=== PATIENT | male | born 1960 ===

== ENCOUNTER → 2017-08-13 | Outpatient (CLI) | payer OTHER ==
[~2017-08-13] MED LIST: ALLO100; AMLO10 PO; AMOX500 PO; CLON.1; COLE625; HYDCHL25; LACT10SY PO; LISI20; LORA2 PO; LOSA25; Lysine1000 MG PO; METO25 PO; Omeprazole20 M1; RANI150; TAMS.4ER; TRIHYD5075 PO; [UNRECOGNIZED DRUG - REMARK]
[2017-08-13 16:42] LABS: Appearance, Urine Clear (Clear); Bilirubin, Urine Neg (Neg); Blood, Urine Neg (Neg); Color, Urine Yellow (P-Yellow); Glucose Qualitative, Urine Neg (Neg); Ketones, Urine Neg (Neg); Leukocyte Esterase, Urine Neg (Neg); Nitrite, Urine Neg (Neg); Protein, Urine 1+ (Neg); Urobilinogen, Urine 2+ (Normal)
== END ==
LOC: LAB 16:32
PROVIDERS: Nurse Practitioner Family
DX: M54.5 Low back pain (principal)
CPT/HCPCS: 81003

== ENCOUNTER 2017-10-24 12:39 | Emergency (ER) | payer OTHER ==
[~2017-10-24] VITALS: Ht 175.3 cm; Wt 104.3 kg
[~2017-10-24 12:39] MED LIST changes: -AMLO10 PO; -LACT10SY PO; -Lysine1000 MG PO
[2017-10-24] MEDS ORDERED: LACT10SY PO (13:09)
[2017-10-24] MEDS ORDERED: AMLO10 PO (13:09)
[2017-10-24] MEDS ORDERED: Lysine1000 MG PO (13:10)
[2017-10-24 14:00] LABS: BASOPHILS ABSOLUTE AUTO 0.07 K/mm3 (0.00-0.23); BASOPHILS PERCENT AUTO 1 % (0-2); EOSINOPHILS ABSOLUTE AUTO 0.11 K/mm3 (0.00-0.68); EOSINOPHILS PERCENT AUTO 2 % (0-6); Hematocrit 47.6 % (37.0-53.0); Hemoglobin 15.9 g/dL (13.5-17.5); IMMATURE GRAN ABSOLUTE AUTO 0.01 K/mm3 (0.00-0.10); IMMATURE GRAN PERCENT AUTO 0 % (0-1); LYMPHOCYTES ABSOLUTE AUTO 2.34 K/mm3 (0.84-5.20); LYMPHOCYTES PERCENT AUTO 37 % (21-46); MONOCYTES ABSOLUTE AUTO 0.54 K/mm3 (0.16-1.47); MONOCYTES PERCENT AUTO 8 % (4-13); Mean Corpuscular HGB 29.7 pg (26.0-34.0); Mean Corpuscular HGB Conc 33.4 g/dL (31.5-36.5); Mean Corpuscular Volume 89 fL (80-100); Mean Platelet Volume 10.4 fL (9.1-12.4); NEUTROPHILS ABSOLUTE AUTO 3.34 K/mm3 (1.96-9.15); NEUTROPHILS PERCENT AUTO 52 % (41-73); Platelet Count 161 K/mm3 (150-400); RDW Coefficient Variation 16.4 % (11.7-14.2); RDW Standard Deviation 53.5 fL (35.1-46.3); Red Blood Cell Count 5.36 M/mm3 (4.30-5.90); White Blood Cell Count 6.41 K/mm3 (4.00-11.30)
[2017-10-24 14:09] LABS: Alanine Aminotransfer (ALT/SGP 27 U/L (12-78); Albumin, Blood 3.8 g/dL (3.4-5.0); Albumin/Globulin Ratio 0.8 (0.8-1.8); Alk Phos 67 U/L (50-136); Anion Gap 8 mmol/L (6-16); Aspartate Aminotrans (AST/SGOT 31 U/L (12-37); Bilirubin, Total 1.9 mg/dL (0.1-1.0); Blood Urea Nitrogen 15 mg/dL (8-24); Bun/Creatinine Ratio 17.4 (12.0-20.0); CO2, Blood 25 mmol/L (21-32); Chloride, Blood 104 mmol/L (98-108); Creatinine, Blood 0.86 mg/dL (0.60-1.20); Globulin, Blood 4.8 g/dL (2.2-4.0); Glomerular Filtration Rate >60 (60-); Glucose, Blood 128 mg/dL (70-99); Potassium, Blood 3.9 mmol/L (3.5-5.5); Sodium, Blood 137 mmol/L (136-145); Total Protein, Blood 8.6 g/dL (6.4-8.2)
== END 2017-10-24 15:22 | disposition home or self-care (01) ==
LOC: ER 12:39
PROVIDERS: Emergency Medicine
DX: R47.81 Slurred speech (principal); R29.810 Facial weakness; R51 Headache; F10.10 Alcohol abuse, uncomplicated; Z88.8 Allergy status to other drugs, medicaments and biological substances; Z79.899 Other long term (current) drug therapy; Z87.891 Personal history of nicotine dependence
CPT/HCPCS: 36415; 70450; 80053; 85025; 93005; 93010; 99284

== ENCOUNTER → 2018-02-23 | Outpatient (CLI) | payer OTHER ==
[~2018-02-23] MED LIST changes: +AMLO10 PO; +LACT10SY PO; +Lysine1000 MG PO
[2018-02-23 11:35] LABS: BASOPHILS ABSOLUTE AUTO 0.06 K/mm3 (0.00-0.23); BASOPHILS PERCENT AUTO 1 % (0-2); EOSINOPHILS ABSOLUTE AUTO 0.21 K/mm3 (0.00-0.68); EOSINOPHILS PERCENT AUTO 3 % (0-6); Hematocrit 42.8 % (37.0-53.0); Hemoglobin 14.5 g/dL (13.5-17.5); IMMATURE GRAN ABSOLUTE AUTO 0.01 K/mm3 (0.00-0.10); IMMATURE GRAN PERCENT AUTO 0 % (0-1); LYMPHOCYTES ABSOLUTE AUTO 2.74 K/mm3 (0.84-5.20); LYMPHOCYTES PERCENT AUTO 42 % (21-46); MONOCYTES ABSOLUTE AUTO 0.54 K/mm3 (0.16-1.47); MONOCYTES PERCENT AUTO 8 % (4-13); Mean Corpuscular HGB Conc 33.9 g/dL (31.5-36.5); Mean Corpuscular Volume 86 fL (80-100); Mean Platelet Volume 10.9 fL (9.1-12.4); NEUTROPHILS ABSOLUTE AUTO 2.93 K/mm3 (1.96-9.15); NEUTROPHILS PERCENT AUTO 45 % (41-73); Platelet Count 168 K/mm3 (150-400); RDW Coefficient Variation 14.8 % (11.7-14.2); RDW Standard Deviation 46.3 fL (35.1-46.3); White Blood Cell Count 6.49 K/mm3 (4.00-11.30)
[2018-02-23 11:47] LABS: Alanine Aminotransfer (ALT/SGP 37 U/L (12-78); Albumin, Blood 3.8 g/dL (3.4-5.0); Albumin/Globulin Ratio 0.9 (0.8-1.8); Alk Phos 69 U/L (40-126); Anion Gap 9 mmol/L (6-16); Aspartate Aminotrans (AST/SGOT 35 U/L (12-37); Bilirubin, Total 1.1 mg/dL (0.1-1.0); Blood Urea Nitrogen 14 mg/dL (8-24); Bun/Creatinine Ratio 13.7 (12.0-20.0); CO2, Blood 26 mmol/L (21-32); Chloride, Blood 100 mmol/L (98-108); Creatinine, Blood 1.02 mg/dL (0.60-1.20); Globulin, Blood 4.4 g/dL (2.2-4.0); Glomerular Filtration Rate >60 (60-); Glucose, Blood 107 mg/dL (70-99); Potassium, Blood 3.6 mmol/L (3.5-5.5); Sodium, Blood 135 mmol/L (136-145); Total Protein, Blood 8.2 g/dL (6.4-8.2)
[2018-02-23 11:48] LABS: Troponin I <0.017 ng/mL (0.000-0.040)
== END | disposition home or self-care (01) ==
LOC: LAB EV 11:29 → LAB SHORT 11:29
PROVIDERS: Physician Assistant
DX: R10.13 Epigastric pain (principal); R07.89 Other chest pain
CPT/HCPCS: 80053; 83690; 84484; 85025

== ENCOUNTER 2018-04-09 11:38 | Day surgery (SDC) | payer OTHER ==
[~2018-04-09] VITALS: Ht 172.7 cm; Wt 105.3 kg
== END 2018-04-09 13:48 | disposition home or self-care (01) ==
LOC: ORSCSDS 11:38
PROVIDERS: Internal Medicine Gastroenterology
PROC: 0DB68ZX Excision of Stomach, Via Natural or Artificial Opening Endoscopic, Diagnostic (ICD-10-PCS; principal; 2018-04-09 13:00)
DX: K70.30 Alcoholic cirrhosis of liver without ascites (principal); E66.9 Obesity, unspecified; Z68.35 Body mass index [BMI] 35.0-35.9, adult; Z87.891 Personal history of nicotine dependence; I10 Essential (primary) hypertension; R06.00 Dyspnea, unspecified; E78.5 Hyperlipidemia, unspecified; E11.9 Type 2 diabetes mellitus without complications; Z79.899 Other long term (current) drug therapy
CPT/HCPCS: 82947; 87081; J7120

== ENCOUNTER → 2018-11-19 | Outpatient (CLI) | payer OTHER ==
[~2018-11-19] MED LIST changes: -ALLO100; +ALLO100 PO; +Acyclovir400 MG PO; +GABA300 PO; +HYDCHL25 PO; +METF500 PO; +NAPR220 PO; -Omeprazole20 M1; +Omeprazole20 M1 PO; -TAMS.4ER; +TAMS.4ER PO
[2018-11-19 16:05] LABS: Appearance, Urine Clear (Clear); Bilirubin, Urine Neg (Neg); Blood, Urine 1+ (Neg); Color, Urine Yellow (P-Yellow); Glucose Qualitative, Urine Neg (Neg); Ketones, Urine Neg (Neg); Leukocyte Esterase, Urine Neg (Neg); Nitrite, Urine Neg (Neg); Protein, Urine 1+ (Neg); Urobilinogen, Urine 2+ (Normal)
[2018-11-19 16:42] LABS: Bacteria Not Seen /hpf; Red Blood Cells, Urine 0-2 /hpf (0-2); Squamous Epithelial Cells Not Seen /hpf (Few); White Blood Cells, Urine 0-2 /hpf (0-5)
== END | disposition home or self-care (01) ==
LOC: LAB 14:54 → LAB SHORT 14:54
PROVIDERS: Family Medicine
DX: R10.30 Lower abdominal pain, unspecified (principal)
CPT/HCPCS: 81001

== ENCOUNTER → 2019-05-08 | Outpatient (CLI) | payer OTHER ==
[2019-05-08 11:54] LABS: Bilirubin, Urine Neg (Neg); Blood, Urine 1+ (Neg); Glucose Qualitative, Urine Neg (Neg); Ketones, Urine 1+ (Neg); Leukocyte Esterase, Urine 1+ (Neg); Nitrite, Urine Neg (Neg); Protein, Urine 2+ (Neg); Urobilinogen, Urine 2+ (Normal); pH, Urine 6.5 (5.0-8.0)
[2019-05-08 12:24] LABS: Appearance, Urine Clear (Clear); Color, Urine Yellow (P-Yellow)
[2019-05-08 12:26] LABS: Bacteria Few /hpf; Red Blood Cells, Urine 0-2 /hpf (0-2); Squamous Epithelial Cells Not Seen /hpf (Few); White Blood Cells, Urine 0-2 /hpf (0-5)
== END | disposition home or self-care (01) ==
LOC: LAB 11:01 → LAB SHORT 11:01
PROVIDERS: Family Medicine
DX: R10.9 Unspecified abdominal pain (principal)
CPT/HCPCS: 81001; 87086

== ENCOUNTER → 2019-12-16 | Outpatient (CLI) | payer OTHER ==
[2019-12-16 10:09] LABS: Appearance, Urine Clear (Clear); Bilirubin, Urine 1+ (Neg); Blood, Urine Neg (Neg); Color, Urine Yellow (P-Yellow); Glucose Qualitative, Urine Neg (Normal); Ketones, Urine 1+ (Neg); Leukocyte Esterase, Urine Neg (Neg); Nitrite, Urine Neg (Neg); Protein, Urine Neg (Neg); Urobilinogen, Urine 2+ (Normal); pH, Urine 6.5 (5.0-8.0)
== END | disposition home or self-care (01) ==
LOC: LAB SHORT 09:20 → LAB EV 09:20
PROVIDERS: Family Medicine
DX: R10.2 Pelvic and perineal pain (principal)
CPT/HCPCS: 81003

== ENCOUNTER → 2019-12-17 | Outpatient (CLI) | payer OTHER ==
[2019-12-17 20:31] LABS: Campylobacter Sp Not Detected (NOT DETECT)
[2019-12-17 20:33] LABS: Adenovirus F 40/41 Not Detected (NOT DETECT); Astrovirus Not Detected (NOT DETECT); Cryptosporidium Not Detected (NOT DETECT); Cyclospora Cayetanensis Not Detected (NOT DETECT); E. Coli O157 Not Detected (NOT DETECT); Entamoeba Histolytica Not Detected (NOT DETECT); Enteroaggregative E. coli-EAEC Not Detected (NOT DETECT); Enteropathogenic E. coli-EPEC Not Detected (NOT DETECT); Enterotoxigenic E. coli-ETEC Not Detected (NOT DETECT); Giardia Lamblia Not Detected (NOT DETECT); Norovirus GI/GII Not Detected (NOT DETECT); Plesiomonas Shigelloides Not Detected (NOT DETECT); Rotavirus A Not Detected (NOT DETECT); Salmonella Sp Not Detected (NOT DETECT); Sapovirus Not Detected (NOT DETECT); Shiga Toxin-prod E. coli-STEC Not Detected (NOT DETECT); Shigella/Enteroin E. coli-EIEC Not Detected (NOT DETECT); Vibrio Cholerae Not Detected (NOT DETECT); Vibrio Sp Not Detected (NOT DETECT); Yersinia Enterocolitica Not Detected (NOT DETECT)
== END | disposition home or self-care (01) ==
LOC: LAB EV 10:45
PROVIDERS: Family Medicine
DX: R19.7 Diarrhea, unspecified (principal); R10.2 Pelvic and perineal pain
CPT/HCPCS: 0097U

== ENCOUNTER → 2019-12-25 | Outpatient (CLI) | payer OTHER ==
[2019-12-25 15:20] LABS: BASOPHILS ABSOLUTE AUTO 0.04 K/mm3 (0.00-0.23); BASOPHILS PERCENT AUTO 1 % (0-2); EOSINOPHILS ABSOLUTE AUTO 0.16 K/mm3 (0.00-0.68); EOSINOPHILS PERCENT AUTO 3 % (0-6); Hematocrit 44.9 % (37.0-53.0); Hemoglobin 15.7 g/dL (13.5-17.5); IMMATURE GRAN ABSOLUTE AUTO 0.03 K/mm3 (0.00-0.10); IMMATURE GRAN PERCENT AUTO 1 % (0-1); LYMPHOCYTES PERCENT AUTO 40 % (21-46); MONOCYTES ABSOLUTE AUTO 0.68 K/mm3 (0.16-1.47); MONOCYTES PERCENT AUTO 11 % (4-13); Mean Corpuscular HGB 29.8 pg (26.0-34.0); Mean Corpuscular Volume 85 fL (80-100); Mean Platelet Volume 10.4 fL (9.1-12.4); NEUTROPHILS ABSOLUTE AUTO 2.69 K/mm3 (1.96-9.15); NEUTROPHILS PERCENT AUTO 45 % (41-73); Platelet Count 161 K/mm3 (150-400); RDW Coefficient Variation 14.6 % (11.7-14.2); RDW Standard Deviation 45.8 fL (35.1-46.3); Red Blood Cell Count 5.26 M/mm3 (4.30-5.90)
[2019-12-25 15:29] LABS: Alanine Aminotransfer (ALT/SGP 47 U/L (12-78); Albumin/Globulin Ratio 0.9 (0.8-1.8); Alk Phos 59 U/L (40-126); Anion Gap 13 mmol/L (6-16); Aspartate Aminotrans (AST/SGOT 64 U/L (12-37); Bilirubin, Total 1.3 mg/dL (0.1-1.0); Blood Urea Nitrogen 11 mg/dL (8-24); Bun/Creatinine Ratio 11.6 (12.0-20.0); CO2, Blood 26 mmol/L (21-32); Calcium, Blood 8.9 mg/dL (8.5-10.1); Chloride, Blood 95 mmol/L (98-108); Creatinine, Blood 0.95 mg/dL (0.60-1.20); Globulin, Blood 4.6 g/dL (2.2-4.0); Glomerular Filtration Rate >60 (60-); Glucose, Blood 111 mg/dL (70-99); Potassium, Blood 3.8 mmol/L (3.5-5.5); Sodium, Blood 134 mmol/L (136-145); Total Protein, Blood 8.6 g/dL (6.4-8.2)
== END ==
LOC: LAB SHORT 15:11 → LAB EV 15:11
PROVIDERS: Physician Assistant Surgical
DX: R10.9 Unspecified abdominal pain (principal)
CPT/HCPCS: 80053; 83690; 85025

== ENCOUNTER 2020-10-19 11:47 | Day surgery (SDC) | payer OTHER ==
[~2020-10-19] VITALS: Ht 175.3 cm; Wt 101.6 kg
== END 2020-10-19 14:18 | disposition home or self-care (01) ==
LOC: ORSCSDS 11:47
PROVIDERS: Internal Medicine Gastroenterology
PROC: 0DBH8ZX Excision of Cecum, Via Natural or Artificial Opening Endoscopic, Diagnostic (ICD-10-PCS; principal; 2020-10-19 13:00)
PROC: 0DBK8ZX Excision of Ascending Colon, Via Natural or Artificial Opening Endoscopic, Diagnostic (ICD-10-PCS; principal; 2020-10-19 13:00)
PROC: 0DBM8ZX Excision of Descending Colon, Via Natural or Artificial Opening Endoscopic, Diagnostic (ICD-10-PCS; principal; 2020-10-19 13:00)
PROC: 0DJ08ZZ Inspection of Upper Intestinal Tract, Via Natural or Artificial Opening Endoscopic (ICD-10-PCS; principal; 2020-10-19 13:00)
DX: I85.00 Esophageal varices without bleeding (principal); K74.60 Unspecified cirrhosis of liver; Z12.11 Encounter for screening for malignant neoplasm of colon; Z86.010 Personal history of colon polyps; D12.0 Benign neoplasm of cecum; D12.2 Benign neoplasm of ascending colon; D12.4 Benign neoplasm of descending colon; K57.30 Diverticulosis of large intestine without perforation or abscess without bleeding; I10 Essential (primary) hypertension; E11.9 Type 2 diabetes mellitus without complications; G47.33 Obstructive sleep apnea (adult) (pediatric); Z87.891 Personal history of nicotine dependence; Z79.899 Other long term (current) drug therapy
CPT/HCPCS: 82947; 88305; J2704; J7120

== ENCOUNTER → 2021-03-03 | Outpatient (CLI) | payer OTHER ==
[2021-03-03 16:55] LABS: Source, Urine Voided
[2021-03-03 16:58] LABS: Color, Urine Yellow (P-Yellow)
[2021-03-03 16:59] LABS: Appearance, Urine Hazy (Clear); Bilirubin, Urine 1+ (Neg); Glucose Qualitative, Urine Neg (Normal); Ketones, Urine Neg (Neg); Leukocyte Esterase, Urine Neg (Neg); Nitrite, Urine Neg (Neg); Protein, Urine Trace (Neg); Urobilinogen, Urine 3+ (Normal)
[2021-03-03 17:00] LABS: Blood, Urine 2+ (Neg)
[2021-03-03 17:01] LABS: Bacteria Not Seen /hpf; Squamous Epithelial Cells Rare /hpf (Few); White Blood Cells, Urine 0-2 /hpf (0-5)
== END | disposition home or self-care (01) ==
LOC: LAB 16:53 → LAB SHORT 16:53
PROVIDERS: Family Medicine
DX: R31.9 Hematuria, unspecified (principal)
CPT/HCPCS: 81001

== ENCOUNTER → 2022-07-03 | Outpatient (CLI) | payer OTHER ==
[2022-07-03 12:34] LABS: BASOPHILS ABSOLUTE AUTO 0.08 K/mm3 (0.00-0.23); BASOPHILS PERCENT AUTO 2 % (0-2); EOSINOPHILS ABSOLUTE AUTO 0.18 K/mm3 (0.00-0.68); EOSINOPHILS PERCENT AUTO 3 % (0-6); Hemoglobin 15.9 g/dL (13.5-17.5); IMMATURE GRAN ABSOLUTE AUTO 0.01 K/mm3 (0.00-0.10); IMMATURE GRAN PERCENT AUTO 0 % (0-1); LYMPHOCYTES ABSOLUTE AUTO 1.89 K/mm3 (0.84-5.20); LYMPHOCYTES PERCENT AUTO 35 % (21-46); MONOCYTES ABSOLUTE AUTO 0.61 K/mm3 (0.16-1.47); MONOCYTES PERCENT AUTO 11 % (4-13); Mean Corpuscular HGB 29.5 pg (26.0-34.0); Mean Corpuscular HGB Conc 34.6 g/dL (31.5-36.5); Mean Corpuscular Volume 85 fL (80-100); NEUTROPHILS ABSOLUTE AUTO 2.64 K/mm3 (1.96-9.15); NEUTROPHILS PERCENT AUTO 49 % (41-73); RDW Coefficient Variation 14.9 % (11.7-14.2); RDW Standard Deviation 45.9 fL (35.1-46.3); Red Blood Cell Count 5.39 M/mm3 (4.30-5.90); White Blood Cell Count 5.41 K/mm3 (4.00-11.30)
[2022-07-03 12:45] LABS: Albumin, Blood 3.5 g/dL (3.4-5.0); Albumin/Globulin Ratio 0.6 (0.8-1.8); Bilirubin, Total 2.3 mg/dL (0.1-1.0); Bun/Creatinine Ratio 8.3 (12.0-20.0); Calcium, Blood 9.1 mg/dL (8.5-10.1); Creatinine, Blood 0.96 mg/dL (0.60-1.20); Globulin, Blood 5.6 g/dL (2.2-4.0); Potassium, Blood 3.3 mmol/L (3.5-5.5); Total Protein, Blood 9.1 g/dL (6.4-8.2)
[2022-07-03 12:47] LABS: Mean Platelet Volume 10.3 fL (9.1-12.4)
[2022-07-03 13:09] LABS: Platelet Count 140 K/mm3 (150-400)
== END ==
LOC: LAB 12:30 → LAB SHORT 12:30
PROVIDERS: Emergency Medicine
DX: R10.9 Unspecified abdominal pain (principal)
CPT/HCPCS: 80053; 83690; 85025

== ENCOUNTER → 2022-07-25 | Outpatient (CLI) | payer OTHER ==
[2022-07-25 13:42] LABS: Campylobacter Sp Not Detected (NOT DETECT); Cryptosporidium Not Detected (NOT DETECT); Cyclospora Cayetanensis Not Detected (NOT DETECT); E. Coli O157 Not Detected (NOT DETECT); Enteroaggregative E. coli-EAEC Not Detected (NOT DETECT); Enteropathogenic E. coli-EPEC Detected (NOT DETECT); Enterotoxigenic E. coli-ETEC Not Detected (NOT DETECT); Plesiomonas Shigelloides Not Detected (NOT DETECT); Salmonella Sp Not Detected (NOT DETECT); Shiga Toxin-prod E. coli-STEC Not Detected (NOT DETECT); Shigella/Enteroin E. coli-EIEC Not Detected (NOT DETECT); Vibrio Cholerae Not Detected (NOT DETECT); Vibrio Sp Not Detected (NOT DETECT); Yersinia Enterocolitica Not Detected (NOT DETECT)
[2022-07-25 13:43] LABS: Adenovirus F 40/41 Not Detected (NOT DETECT); Astrovirus Not Detected (NOT DETECT); Entamoeba Histolytica Not Detected (NOT DETECT); Giardia Lamblia Not Detected (NOT DETECT); Norovirus GI/GII Not Detected (NOT DETECT); Rotavirus A Not Detected (NOT DETECT); Sapovirus Not Detected (NOT DETECT)
== END | disposition home or self-care (01) ==
LOC: LAB SHORT 10:20 → LAB FUT 07-24 11:20 → EDSTATUS 07-24 11:20
PROVIDERS: Internal Medicine Gastroenterology
DX: R19.4 Change in bowel habit (principal)
CPT/HCPCS: 87324; 87507

== ENCOUNTER → 2022-11-20 | Outpatient (CLI) | payer OTHER ==
[2022-11-20 17:58] LABS: BASOPHILS ABSOLUTE AUTO 0.04 K/mm3 (0.00-0.23); BASOPHILS PERCENT AUTO 1 % (0-2); EOSINOPHILS ABSOLUTE AUTO 0.02 K/mm3 (0.00-0.68); EOSINOPHILS PERCENT AUTO 0 % (0-6); Hematocrit 42.4 % (37.0-53.0); Hemoglobin 14.9 g/dL (13.5-17.5); IMMATURE GRAN ABSOLUTE AUTO 0.01 K/mm3 (0.00-0.10); IMMATURE GRAN PERCENT AUTO 0 % (0-1); LYMPHOCYTES ABSOLUTE AUTO 1.93 K/mm3 (0.84-5.20); LYMPHOCYTES PERCENT AUTO 36 % (21-46); MONOCYTES ABSOLUTE AUTO 0.38 K/mm3 (0.16-1.47); MONOCYTES PERCENT AUTO 7 % (4-13); Mean Corpuscular HGB 30.3 pg (26.0-34.0); Mean Corpuscular HGB Conc 35.1 g/dL (31.5-36.5); Mean Corpuscular Volume 86 fL (80-100); NEUTROPHILS ABSOLUTE AUTO 2.98 K/mm3 (1.96-9.15); NEUTROPHILS PERCENT AUTO 56 % (41-73); RDW Coefficient Variation 14.8 % (11.7-14.2); RDW Standard Deviation 46.7 fL (35.1-46.3); Red Blood Cell Count 4.91 M/mm3 (4.30-5.90); White Blood Cell Count 5.36 K/mm3 (4.00-11.30)
[2022-11-20 18:00] LABS: Mean Platelet Volume 11.3 fL (9.1-12.4); Platelet Count 122 K/mm3 (150-400)
[2022-11-20 18:09] LABS: Albumin, Blood 3.3 g/dL (3.4-5.0); Albumin/Globulin Ratio 0.6 (0.8-1.8); Bilirubin, Total 3.1 mg/dL (0.1-1.0); Bun/Creatinine Ratio 8.4 (12.0-20.0); Calcium, Blood 8.9 mg/dL (8.5-10.1); Creatinine, Blood 1.07 mg/dL (0.60-1.20); Globulin, Blood 5.1 g/dL (2.2-4.0); Potassium, Blood 3.5 mmol/L (3.5-5.5); Total Protein, Blood 8.4 g/dL (6.4-8.2)
== END | disposition home or self-care (01) ==
LOC: LAB SHORT 17:52 → LAB 17:52
PROVIDERS: Family Medicine
DX: R07.9 Chest pain, unspecified (principal)
CPT/HCPCS: 80053; 84484; 85025

== ENCOUNTER 2023-04-05 17:24 | Emergency (ER) | payer OTHER ==
[~2023-04-05] VITALS: Ht 170.2 cm; Wt 90.7 kg
[2023-04-05 18:23] LABS: BASOPHILS ABSOLUTE AUTO 0.08 K/mm3 (0.00-0.23); BASOPHILS PERCENT AUTO 1 % (0-2); EOSINOPHILS ABSOLUTE AUTO 0.25 K/mm3 (0.00-0.68); EOSINOPHILS PERCENT AUTO 4 % (0-6); Hemoglobin 12.5 g/dL (13.5-17.5); IMMATURE GRAN ABSOLUTE AUTO 0.01 K/mm3 (0.00-0.10); IMMATURE GRAN PERCENT AUTO 0 % (0-1); LYMPHOCYTES ABSOLUTE AUTO 1.95 K/mm3 (0.84-5.20); LYMPHOCYTES PERCENT AUTO 32 % (21-46); MONOCYTES ABSOLUTE AUTO 0.98 K/mm3 (0.16-1.47); MONOCYTES PERCENT AUTO 16 % (4-13); Mean Corpuscular HGB 29.7 pg (26.0-34.0); Mean Corpuscular HGB Conc 33.8 g/dL (31.5-36.5); Mean Corpuscular Volume 88 fL (80-100); Mean Platelet Volume 11.3 fL (9.1-12.4); NEUTROPHILS ABSOLUTE AUTO 2.93 K/mm3 (1.96-9.15); NEUTROPHILS PERCENT AUTO 47 % (41-73); Platelet Count 130 K/mm3 (150-400); RDW Standard Deviation 51.9 fL (35.1-46.3); Red Blood Cell Count 4.21 M/mm3 (4.30-5.90)
[2023-04-05 18:56] LABS: Albumin, Blood 2.9 g/dL (3.4-5.0); Albumin/Globulin Ratio 0.6 (0.8-1.8); Bilirubin, Total 4.1 mg/dL (0.1-1.0); Bun/Creatinine Ratio 17.6 (12.0-20.0); Calcium, Blood 9.1 mg/dL (8.5-10.1); Creatinine, Blood 0.97 mg/dL (0.60-1.20); Globulin, Blood 4.9 g/dL (2.2-4.0); Potassium, Blood 3.2 mmol/L (3.5-5.5); Total Protein, Blood 7.8 g/dL (6.4-8.2)
[2023-04-05 20:30] VITALS: BP 146/89
== END 2023-04-05 20:45 | disposition home or self-care (01) ==
LOC: ER 17:24
PROVIDERS: Student in an Organized Health Care Education/Training Program
DX: K76.82 Hepatic encephalopathy (principal); E87.6 Hypokalemia; Z88.8 Allergy status to other drugs, medicaments and biological substances; Z79.899 Other long term (current) drug therapy; Z79.84 Long term (current) use of oral hypoglycemic drugs; E11.9 Type 2 diabetes mellitus without complications; F10.20 Alcohol dependence, uncomplicated
CPT/HCPCS: 74177; 80053; 82140; 83690; 85025; 93005; 93010; 99285-25; A9270; Q9967

== ENCOUNTER 2023-04-15 13:00 | Emergency (ER) | payer OTHER ==
[~2023-04-15] VITALS: Ht 170.2 cm; Wt 93.0 kg
[2023-04-15 13:52] LABS: BASOPHILS ABSOLUTE AUTO 0.04 K/mm3 (0.00-0.23); BASOPHILS PERCENT AUTO 1 % (0-2); EOSINOPHILS ABSOLUTE AUTO 0.26 K/mm3 (0.00-0.68); EOSINOPHILS PERCENT AUTO 4 % (0-6); Hematocrit 36.3 % (37.0-53.0); Hemoglobin 12.5 g/dL (13.5-17.5); IMMATURE GRAN ABSOLUTE AUTO 0.01 K/mm3 (0.00-0.10); IMMATURE GRAN PERCENT AUTO 0 % (0-1); LYMPHOCYTES ABSOLUTE AUTO 1.92 K/mm3 (0.84-5.20); LYMPHOCYTES PERCENT AUTO 32 % (21-46); MONOCYTES ABSOLUTE AUTO 0.75 K/mm3 (0.16-1.47); MONOCYTES PERCENT AUTO 13 % (4-13); Mean Corpuscular HGB 29.5 pg (26.0-34.0); Mean Corpuscular HGB Conc 34.4 g/dL (31.5-36.5); Mean Corpuscular Volume 86 fL (80-100); Mean Platelet Volume 11.2 fL (9.1-12.4); NEUTROPHILS ABSOLUTE AUTO 2.99 K/mm3 (1.96-9.15); NEUTROPHILS PERCENT AUTO 50 % (41-73); Platelet Count 185 K/mm3 (150-400); RDW Standard Deviation 49.8 fL (35.1-46.3); Red Blood Cell Count 4.24 M/mm3 (4.30-5.90); White Blood Cell Count 5.97 K/mm3 (4.00-11.30)
[2023-04-15 14:07] LABS: International Normalized Ratio 1.52; Prothrombin Time Results 15.6 Sec (9.7-11.5)
[2023-04-15 14:35] LABS: Albumin, Blood 2.6 g/dL (3.4-5.0); Albumin/Globulin Ratio 0.5 (0.8-1.8); Bilirubin, Total 3.9 mg/dL (0.1-1.0); Bun/Creatinine Ratio 13.9 (12.0-20.0); Calcium, Blood 8.8 mg/dL (8.5-10.1); Creatinine, Blood 1.08 mg/dL (0.60-1.20); Globulin, Blood 5.1 g/dL (2.2-4.0); Potassium, Blood 3.3 mmol/L (3.5-5.5); Total Protein, Blood 7.7 g/dL (6.4-8.2)
[2023-04-15] MEDS ORDERED: CONSTULOSE10 GM/155 PO (15:08)
[2023-04-15] MEDS ORDERED: ATOR40TA PO (15:09)
[2023-04-15] MEDS ORDERED: ONDA4ODT MM (15:09)
[2023-04-15 15:44] VITALS: BP 121/71
== END 2023-04-15 15:49 | disposition home or self-care (01) ==
LOC: ER 13:00
PROVIDERS: Physician Assistant
DX: K70.31 Alcoholic cirrhosis of liver with ascites (principal); F10.11 Alcohol abuse, in remission; E11.9 Type 2 diabetes mellitus without complications; F17.210 Nicotine dependence, cigarettes, uncomplicated; Z88.8 Allergy status to other drugs, medicaments and biological substances; Z79.899 Other long term (current) drug therapy
CPT/HCPCS: 80053; 83690; 85025; 85610; 99284

== ENCOUNTER 2023-05-11 10:29 | Emergency (ER) | payer OTHER ==
[~2023-05-11] VITALS: Ht 170.2 cm; Wt 87.5 kg
[~2023-05-11 10:29] MED LIST changes: +ATOR40TA PO; +CONSTULOSE10 GM/155 PO; +ONDA4ODT MM
[2023-05-11 11:08] LABS: BASOPHILS ABSOLUTE AUTO 0.06 K/mm3 (0.00-0.23); BASOPHILS PERCENT AUTO 1 % (0-2); EOSINOPHILS ABSOLUTE AUTO 0.19 K/mm3 (0.00-0.68); EOSINOPHILS PERCENT AUTO 4 % (0-6); Hematocrit 36.2 % (37.0-53.0); Hemoglobin 12.3 g/dL (13.5-17.5); IMMATURE GRAN ABSOLUTE AUTO 0.01 K/mm3 (0.00-0.10); IMMATURE GRAN PERCENT AUTO 0 % (0-1); LYMPHOCYTES ABSOLUTE AUTO 1.77 K/mm3 (0.84-5.20); LYMPHOCYTES PERCENT AUTO 39 % (21-46); MONOCYTES ABSOLUTE AUTO 0.35 K/mm3 (0.16-1.47); MONOCYTES PERCENT AUTO 8 % (4-13); Mean Corpuscular HGB 29.7 pg (26.0-34.0); Mean Corpuscular Volume 87 fL (80-100); Mean Platelet Volume 12.2 fL (9.1-12.4); NEUTROPHILS ABSOLUTE AUTO 2.22 K/mm3 (1.96-9.15); NEUTROPHILS PERCENT AUTO 48 % (41-73); Platelet Count 170 K/mm3 (150-400); RDW Coefficient Variation 18.1 % (11.7-14.2); RDW Standard Deviation 56.8 fL (35.1-46.3); Red Blood Cell Count 4.14 M/mm3 (4.30-5.90)
[2023-05-11 11:48] LABS: International Normalized Ratio 1.48; Prothrombin Time Results 15.2 Sec (9.7-11.5)
[2023-05-11 11:54] LABS: Albumin, Blood 2.5 g/dL (3.4-5.0); Albumin/Globulin Ratio 0.4 (0.8-1.8); Bilirubin, Total 3.9 mg/dL (0.1-1.0); Bun/Creatinine Ratio 17.3 (12.0-20.0); Calcium, Blood 8.8 mg/dL (8.5-10.1); Creatinine, Blood 1.1 mg/dL (0.60-1.20); Globulin, Blood 5.8 g/dL (2.2-4.0); Potassium, Blood 3.7 mmol/L (3.5-5.5); Total Protein, Blood 8.3 g/dL (6.4-8.2)
[2023-05-11 12:00] VITALS: BP 103/70
== END 2023-05-11 12:32 | disposition home or self-care (01) ==
LOC: ER 10:29
PROVIDERS: Emergency Medicine
DX: R55 Syncope and collapse (principal); S00.01XA Abrasion of scalp, initial encounter; E72.20 Disorder of urea cycle metabolism, unspecified; W18.09XA Striking against other object with subsequent fall, initial encounter; Y92.002 Bathroom of unspecified non-institutional (private) residence as the place of occurrence of the external cause; Z88.8 Allergy status to other drugs, medicaments and biological substances; Z79.899 Other long term (current) drug therapy; E11.9 Type 2 diabetes mellitus without complications
CPT/HCPCS: 70450; 80053; 82140; 85025; 85610; 85730; 99284-25; A9270

== ENCOUNTER 2023-05-14 12:02 | Inpatient (IN) | payer OTHER ==
[~2023-05-14] VITALS: Ht 170.2 cm; Wt 85.6 kg
[2023-05-14 12:49] LABS: BASOPHILS ABSOLUTE AUTO 0.04 K/mm3 (0.00-0.23); BASOPHILS PERCENT AUTO 1 % (0-2); EOSINOPHILS ABSOLUTE AUTO 0.29 K/mm3 (0.00-0.68); EOSINOPHILS PERCENT AUTO 6 % (0-6); Hematocrit 33.1 % (37.0-53.0); Hemoglobin 11.6 g/dL (13.5-17.5); IMMATURE GRAN ABSOLUTE AUTO 0.01 K/mm3 (0.00-0.10); IMMATURE GRAN PERCENT AUTO 0 % (0-1); LYMPHOCYTES ABSOLUTE AUTO 1.37 K/mm3 (0.84-5.20); LYMPHOCYTES PERCENT AUTO 29 % (21-46); MONOCYTES ABSOLUTE AUTO 0.47 K/mm3 (0.16-1.47); MONOCYTES PERCENT AUTO 10 % (4-13); Mean Corpuscular HGB 29.9 pg (26.0-34.0); Mean Corpuscular Volume 85 fL (80-100); Mean Platelet Volume 10.9 fL (9.1-12.4); NEUTROPHILS PERCENT AUTO 54 % (41-73); Platelet Count 156 K/mm3 (150-400); RDW Coefficient Variation 17.8 % (11.7-14.2); Red Blood Cell Count 3.88 M/mm3 (4.30-5.90); White Blood Cell Count 4.78 K/mm3 (4.00-11.30)
[2023-05-14 13:02] LABS: International Normalized Ratio 1.41; Prothrombin Time Results 14.5 Sec (9.7-11.5)
[2023-05-14 13:09] LABS: Albumin, Blood 2.5 g/dL (3.4-5.0); Albumin/Globulin Ratio 0.5 (0.8-1.8); Bilirubin, Total 3.1 mg/dL (0.1-1.0); Bun/Creatinine Ratio 16.3 (12.0-20.0); Creatinine, Blood 1.23 mg/dL (0.60-1.20); Globulin, Blood 5.5 g/dL (2.2-4.0); Potassium, Blood 3.8 mmol/L (3.5-5.5)
[2023-05-14 21:20] VITALS: BP 131/76
--- NOTE | 2023-05-14 21:53 | NUR ---
ADMIT NOTE 62 YR OLD MALE ADMITTED TO FLOOR FROM THE ED WITH DX OF HEPATIC ENCEPHALOPATHY. SKIN JAUNDICED, A FEW SCRATCHES NOTED. NO NOTED SKIN ULCERS. ALERT TO QUESTIONS ASKED, SOME APPARENT LACK OF RECALL WITH MEDS, OTHERWISE ANSWERS SEEMED APPROPRIATE. PT HAS HIGH AMONIA LEVELS, HAS ORDERS FOR ENULOSE ENEMAS Q 6 HRS TO HELP BRING DOWN AMONIA LEVELS. ORIENTED TO USE OF CALL LIGHT. CALL LIGHT IN REACH. AGREES TO USE CALL LIGHT PRIOR TO GETTING OOB. WILL CONTINUE TO MONITOR
--- NOTE | 2023-05-15 02:56 | NUR ---
LACTULOSE ORDERS CHANGED TO PO Q 6 HR FROM ENEMAS. IVF INFUSING. CALL LIGHT IN REACH.
--- NOTE | 2023-05-15 03:11 | NUR ---
TESTER ELECTRONIC SCALE SUMMARY PT ADMITTED TO FLOOR EARLIER IN THE SHIFT WITH HEPATIC ENCEPHALOPATHY. RECEIVED ENULOSE ENEMAS IN THE ED TO DECREASE AMONIA LEVELS. ALERT AND ORIENTED BUT LETHARGIC. ABLE TO TAKE PO MEDS. ENULOSE CHANGED TO PO FROM ENEMAS PER MD ORDERS. TOLERATING MED WELL. CALL LIGHT IN REACH. RESTING QUIETLY WITH FEW INTERRUPTIONS. RAILS UP X 3. CALL LIGHT IN REACH. COMMODE AT BEDSIDE. WILL CONTINUE TO MONITOR. VSS.
[2023-05-15 03:35] VITALS: BP 115/80
[2023-05-15 06:05] LABS: BASOPHILS ABSOLUTE AUTO 0.05 K/mm3 (0.00-0.23); BASOPHILS PERCENT AUTO 1 % (0-2); EOSINOPHILS ABSOLUTE AUTO 0.33 K/mm3 (0.00-0.68); EOSINOPHILS PERCENT AUTO 7 % (0-6); Hemoglobin 10.6 g/dL (13.5-17.5); IMMATURE GRAN ABSOLUTE AUTO 0.02 K/mm3 (0.00-0.10); IMMATURE GRAN PERCENT AUTO 0 % (0-1); LYMPHOCYTES ABSOLUTE AUTO 1.65 K/mm3 (0.84-5.20); LYMPHOCYTES PERCENT AUTO 36 % (21-46); MONOCYTES ABSOLUTE AUTO 0.56 K/mm3 (0.16-1.47); MONOCYTES PERCENT AUTO 12 % (4-13); Mean Corpuscular HGB 29.8 pg (26.0-34.0); Mean Corpuscular HGB Conc 35.3 g/dL (31.5-36.5); Mean Corpuscular Volume 84 fL (80-100); Mean Platelet Volume 11.5 fL (9.1-12.4); NEUTROPHILS PERCENT AUTO 43 % (41-73); Platelet Count 128 K/mm3 (150-400); RDW Coefficient Variation 17.7 % (11.7-14.2); RDW Standard Deviation 53.8 fL (35.1-46.3); Red Blood Cell Count 3.56 M/mm3 (4.30-5.90); White Blood Cell Count 4.61 K/mm3 (4.00-11.30)
[2023-05-15 06:19] LABS: Albumin, Blood 2.2 g/dL (3.4-5.0); Albumin/Globulin Ratio 0.4 (0.8-1.8); Bilirubin, Total 3.7 mg/dL (0.1-1.0); Bun/Creatinine Ratio 17.4 (12.0-20.0); Calcium, Blood 8.5 mg/dL (8.5-10.1); Creatinine, Blood 1.09 mg/dL (0.60-1.20); Magnesium, Blood 1.6 mg/dL (1.6-2.4); Phosphorus, Blood 3.5 mg/dL (2.5-4.9); Potassium, Blood 3.9 mmol/L (3.5-5.5); Total Protein, Blood 7.2 g/dL (6.4-8.2)
[2023-05-15 06:27] LABS: International Normalized Ratio 1.46
[2023-05-15 07:23] VITALS: BP 117/80
[2023-05-15] MEDS ORDERED: LOSA50 PO (15:17)
[2023-05-15 15:21] VITALS: BP 105/69
--- NOTE | 2023-05-15 17:32 | NUR ---
SHIFT SUMMARY PATIENT ALERT, COOPERATIVE WITH CARE. PATIENT STATES THAT HE STILL HAS EPISODES OF HALLUCINATIONS BUT NOT MUCH HE WAS HAVING BEFORE HE CAME TO THE HOSPITAL. PATIENT UP TO COMMODE AND BR NEEDED TO HAVE A BM. PATIENT HAS HAD 2 BMS TODAY. PATIENT AND FAMILY EDUCATED ON THE IMPORTANCE OF HAVING 3-5 BOWEL MOVEMENTS AT HOME TO REDUCE AMONIA LEVEL AND PREVENT READMISSIONS. PATIENT ABLE TO VERBALIZE UNDERSTANDING AND PLANS TO TAKE ENULOSE AT HOME.
[2023-05-15 19:20] VITALS: BP 120/75
[2023-05-16 02:43] VITALS: BP 128/80
--- NOTE | 2023-05-16 04:07 | NUR ---
SHIFT SUMMARY ROHAN WAS ALERT AND ORIENTED X 3 AT START OF SHIFT. PT COOPERATIVE WITH CARE. NO ACUTE CHANGES OR EVENTS THIS SHIFT. PT RESTED T/O THE SHIFT WITHOUT COMPLAINT. HE AMBULATED TO THE BATHROOM 2-3 TIMES FOR BOWEL MOVEMENTS. AT SHIFT REPORT, DAY SHIFT NURSE EXPLAINED THAT SHE HAD PLACED A NEW IV D/T PATTENCY ISSUES WITH THE EXISTING IV. OLD IV REMOVED. PT RESTING IN BED AT A LOW POSITION WITH THE CALL LIGHT IN REACH.
[2023-05-16 05:44] LABS: BASOPHILS ABSOLUTE AUTO 0.04 K/mm3 (0.00-0.23); BASOPHILS PERCENT AUTO 1 % (0-2); EOSINOPHILS ABSOLUTE AUTO 0.29 K/mm3 (0.00-0.68); EOSINOPHILS PERCENT AUTO 6 % (0-6); Hematocrit 28.8 % (37.0-53.0); Hemoglobin 10.2 g/dL (13.5-17.5); IMMATURE GRAN ABSOLUTE AUTO 0.01 K/mm3 (0.00-0.10); IMMATURE GRAN PERCENT AUTO 0 % (0-1); LYMPHOCYTES PERCENT AUTO 33 % (21-46); MONOCYTES ABSOLUTE AUTO 0.64 K/mm3 (0.16-1.47); MONOCYTES PERCENT AUTO 12 % (4-13); Mean Corpuscular HGB 29.9 pg (26.0-34.0); Mean Corpuscular HGB Conc 35.4 g/dL (31.5-36.5); Mean Corpuscular Volume 85 fL (80-100); Mean Platelet Volume 11.9 fL (9.1-12.4); NEUTROPHILS ABSOLUTE AUTO 2.54 K/mm3 (1.96-9.15); NEUTROPHILS PERCENT AUTO 49 % (41-73); Platelet Count 121 K/mm3 (150-400); RDW Coefficient Variation 17.8 % (11.7-14.2); RDW Standard Deviation 53.7 fL (35.1-46.3); Red Blood Cell Count 3.41 M/mm3 (4.30-5.90); White Blood Cell Count 5.22 K/mm3 (4.00-11.30)
[2023-05-16 05:55] LABS: International Normalized Ratio 1.44; Prothrombin Time Results 14.8 Sec (9.7-11.5)
[2023-05-16 06:21] LABS: Albumin, Blood 2.2 g/dL (3.4-5.0); Albumin/Globulin Ratio 0.5 (0.8-1.8); Bilirubin, Total 2.9 mg/dL (0.1-1.0); Bun/Creatinine Ratio 18.6 (12.0-20.0); Calcium, Blood 8.4 mg/dL (8.5-10.1); Creatinine, Blood 1.13 mg/dL (0.60-1.20); Globulin, Blood 4.7 g/dL (2.2-4.0); Magnesium, Blood 1.7 mg/dL (1.6-2.4); Phosphorus, Blood 3.7 mg/dL (2.5-4.9); Potassium, Blood 4.2 mmol/L (3.5-5.5); Total Protein, Blood 6.9 g/dL (6.4-8.2)
[2023-05-16 07:11] VITALS: BP 131/81
[2023-05-16] MEDS ORDERED: SPIR50 PO (13:00)
[2023-05-16] MEDS ORDERED: FURO20 PO (13:00)
--- NOTE | 2023-05-16 13:53 | NUR ---
SHIFT SUMMARY PT DISCHARGED TO HOME. PT LEFT ROOM VIA WHEELCHAIR JUST PRIOR TO THIS NOTE VIA WHEELCHAIR WITH PERFUSIONIST AND GASOLINE FINISHER PRESENT. PT AND SPOUSE EDUCATED ON ALL DISCHARGE INTRUCTIONS INCLUDING FOLLOWING UP WITH PCP AT [facility] 05/17/23. IV DC'D AND BELONGINGS RETURNED. ALL QUESTIONS ANSWERED.
== END 2023-05-16 13:51 | disposition home or self-care (01) | DRG 442 ==
LOC: ER 12:02 → MEDS 18:28 → ERHOLD 18:28 → MEDS 21:18
PROVIDERS: Emergency Medicine; ADMIT Family Medicine
DX: K76.82 Hepatic encephalopathy (principal); E87.20 Acidosis, unspecified; F10.10 Alcohol abuse, uncomplicated; E11.40 Type 2 diabetes mellitus with diabetic neuropathy, unspecified; E78.5 Hyperlipidemia, unspecified; Z66 Do not resuscitate; I10 Essential (primary) hypertension; N40.0 Benign prostatic hyperplasia without lower urinary tract symptoms; D63.8 Anemia in other chronic diseases classified elsewhere; G47.33 Obstructive sleep apnea (adult) (pediatric); K59.00 Constipation, unspecified; K70.31 Alcoholic cirrhosis of liver with ascites; Z88.8 Allergy status to other drugs, medicaments and biological substances; Z79.899 Other long term (current) drug therapy; Z98.890 Other specified postprocedural states
CPT/HCPCS: 36415; 70450; 80053; 82140; 83605; 83735; 84100; 85025; 85610; 93005; 93010; 94762; 99285-25; A9270; J1644; J1940; J2405; J3475

== ENCOUNTER → 2023-06-19 | Outpatient (CLI) | payer OTHER ==
[~2023-06-19] MED LIST changes: +FURO20 PO; +LOSA50 PO; +SPIR50 PO
[2023-06-19 08:59] LABS: BASOPHILS ABSOLUTE AUTO 0.03 K/mm3 (0.00-0.23); BASOPHILS PERCENT AUTO 1 % (0-2); EOSINOPHILS ABSOLUTE AUTO 0.18 K/mm3 (0.00-0.68); EOSINOPHILS PERCENT AUTO 3 % (0-6); Hematocrit 35.7 % (37.0-53.0); Hemoglobin 12.7 g/dL (13.5-17.5); IMMATURE GRAN ABSOLUTE AUTO 0.03 K/mm3 (0.00-0.10); IMMATURE GRAN PERCENT AUTO 1 % (0-1); LYMPHOCYTES ABSOLUTE AUTO 1.11 K/mm3 (0.84-5.20); LYMPHOCYTES PERCENT AUTO 17 % (21-46); MONOCYTES ABSOLUTE AUTO 0.57 K/mm3 (0.16-1.47); MONOCYTES PERCENT AUTO 9 % (4-13); Mean Corpuscular HGB 31.1 pg (26.0-34.0); Mean Corpuscular HGB Conc 35.6 g/dL (31.5-36.5); Mean Corpuscular Volume 88 fL (80-100); Mean Platelet Volume 9.6 fL (9.1-12.4); NEUTROPHILS PERCENT AUTO 71 % (41-73); Platelet Count 165 K/mm3 (150-400); RDW Coefficient Variation 17.6 % (11.7-14.2); RDW Standard Deviation 55.8 fL (35.1-46.3); Red Blood Cell Count 4.08 M/mm3 (4.30-5.90); White Blood Cell Count 6.62 K/mm3 (4.00-11.30)
[2023-06-19 09:09] LABS: Albumin, Blood 2.6 g/dL (3.4-5.0); Albumin/Globulin Ratio 0.5 (0.8-1.8); Bilirubin, Total 3.5 mg/dL (0.1-1.0); Bun/Creatinine Ratio 12.4 (12.0-20.0); Calcium, Blood 8.9 mg/dL (8.5-10.1); Creatinine, Blood 1.13 mg/dL (0.60-1.20); Globulin, Blood 5.2 g/dL (2.2-4.0); Potassium, Blood 4.1 mmol/L (3.5-5.5); Total Protein, Blood 7.8 g/dL (6.4-8.2)
== END | disposition home or self-care (01) ==
LOC: LAB 08:52 → LAB SHORT 08:52
PROVIDERS: Family Medicine
DX: K72.10 Chronic hepatic failure without coma (principal); R10.30 Lower abdominal pain, unspecified
CPT/HCPCS: 80053; 82140; 85025

== ENCOUNTER 2023-07-01 12:25 | Day surgery (SDC) | payer OTHER ==
[~2023-07-01] VITALS: Ht 172.7 cm; Wt 79.5 kg
[2023-07-01] MEDS ORDERED: POTA8 (12:58)
[2023-07-01 14:00] VITALS: BP 102/74
== END 2023-07-01 14:05 | disposition home or self-care (01) ==
LOC: ORSCSDS 12:25
PROVIDERS: Internal Medicine Gastroenterology
PROC: 0DJ08ZZ Inspection of Upper Intestinal Tract, Via Natural or Artificial Opening Endoscopic (ICD-10-PCS; principal; 2023-07-01 14:15)
DX: K70.31 Alcoholic cirrhosis of liver with ascites (principal); I85.10 Secondary esophageal varices without bleeding; K76.82 Hepatic encephalopathy; E11.9 Type 2 diabetes mellitus without complications; G47.30 Sleep apnea, unspecified; I10 Essential (primary) hypertension; G47.33 Obstructive sleep apnea (adult) (pediatric); K21.9 Gastro-esophageal reflux disease without esophagitis; Z87.891 Personal history of nicotine dependence; Z79.899 Other long term (current) drug therapy
CPT/HCPCS: 82947; J0461; J1980; J2001; J2405; J2704; J7120; Q9968

== ENCOUNTER 2023-07-13 15:52 | Emergency (ER) | payer OTHER ==
[~2023-07-13] VITALS: Ht 172.7 cm; Wt 77.1 kg
[~2023-07-13 15:52] MED LIST changes: +POTA8
[2023-07-13 16:28] LABS: BASOPHILS ABSOLUTE AUTO 0.04 K/mm3 (0.00-0.23); BASOPHILS PERCENT AUTO 1 % (0-2); EOSINOPHILS ABSOLUTE AUTO 0.11 K/mm3 (0.00-0.68); EOSINOPHILS PERCENT AUTO 3 % (0-6); Hematocrit 35.9 % (37.0-53.0); Hemoglobin 12.7 g/dL (13.5-17.5); IMMATURE GRAN PERCENT AUTO 0 % (0-1); LYMPHOCYTES ABSOLUTE AUTO 1.18 K/mm3 (0.84-5.20); LYMPHOCYTES PERCENT AUTO 32 % (21-46); MONOCYTES ABSOLUTE AUTO 0.42 K/mm3 (0.16-1.47); MONOCYTES PERCENT AUTO 11 % (4-13); Mean Corpuscular HGB 30.7 pg (26.0-34.0); Mean Corpuscular HGB Conc 35.4 g/dL (31.5-36.5); Mean Corpuscular Volume 87 fL (80-100); Mean Platelet Volume 9.6 fL (9.1-12.4); NEUTROPHILS ABSOLUTE AUTO 1.97 K/mm3 (1.96-9.15); NEUTROPHILS PERCENT AUTO 53 % (41-73); Platelet Count 139 K/mm3 (150-400); RDW Coefficient Variation 16.3 % (11.7-14.2); RDW Standard Deviation 51.8 fL (35.1-46.3); Red Blood Cell Count 4.14 M/mm3 (4.30-5.90); White Blood Cell Count 3.72 K/mm3 (4.00-11.30)
[2023-07-13 16:46] LABS: Albumin, Blood 2.7 g/dL (3.4-5.0); Albumin/Globulin Ratio 0.5 (0.8-1.8); Bilirubin, Direct 1.7 mg/dL (0.0-0.3); Bilirubin, Indirect 1.1 mg/dL (0.1-0.7); Bilirubin, Total 2.8 mg/dL (0.1-1.0); Bun/Creatinine Ratio 12.1 (12.0-20.0); Calcium, Blood 8.5 mg/dL (8.5-10.1); Creatinine, Blood 0.99 mg/dL (0.60-1.20); Globulin, Blood 5.1 g/dL (2.2-4.0); Total Protein, Blood 7.8 g/dL (6.4-8.2)
[2023-07-13 17:14] VITALS: BP 110/68
[2023-07-13] MEDS ORDERED: Kristalose20 GM PO (17:26)
== END 2023-07-13 17:56 | disposition home or self-care (01) ==
LOC: ER 15:52
PROVIDERS: Physician Assistant
DX: K76.82 Hepatic encephalopathy (principal); E11.9 Type 2 diabetes mellitus without complications; Z88.8 Allergy status to other drugs, medicaments and biological substances; Z79.899 Other long term (current) drug therapy
CPT/HCPCS: 80048; 80076; 82140; 85025; 99284; A9270

== ENCOUNTER → 2023-08-09 | Outpatient (CLI) | payer OTHER ==
[~2023-08-09] MED LIST changes: +Kristalose20 GM PO
== END | disposition home or self-care (01) ==
LOC: LAB SHORT 12:12
DX: R33.9 Retention of urine, unspecified (principal)
CPT/HCPCS: 87086

== ENCOUNTER → 2023-10-14 | Outpatient (CLI) | payer OTHER ==
[~2023-10-14] MED LIST changes: +CHOLP PO; +OMEP20ER PO; -Omeprazole20 M1 PO; +POTA10T PO; -POTA8; +RIFA550T2 PO; +SPIR25 PO; -SPIR50 PO
[2023-10-14 13:45] LABS: Source, Urine Clean Catch
[2023-10-14 15:40] LABS: Appearance, Urine Clear (Clear); Blood, Urine 3+ (Neg); Color, Urine Amber (P-Yellow); Glucose Qualitative, Urine Neg (Neg); Ketones, Urine 1+ (Neg); Leukocyte Esterase, Urine 1+ (Neg); Nitrite, Urine Neg (Neg); Protein, Urine 1+ (Neg); Specific Gravity, Urine 1.015 (1.003-1.022); Urobilinogen, Urine 2+ (Normal)
[2023-10-14 15:55] LABS: Bilirubin, Urine 1+ (Neg)
[2023-10-14 15:56] LABS: Calcium Oxalate Crystals Many /hpf
[2023-10-14 15:57] LABS: Bacteria Mod /hpf; Mucus Mod (0-Heavy); Red Blood Cells, Urine 0-2 /hpf (0-2); Squamous Epithelial Cells Few /hpf (Few); White Blood Cells, Urine 0-2 /hpf (0-5)
== END ==
LOC: LAB SHORT 13:36 → LAB 13:36
PROVIDERS: Internal Medicine
DX: Z01.818 Encounter for other preprocedural examination (principal); K70.31 Alcoholic cirrhosis of liver with ascites
CPT/HCPCS: 81001

== ENCOUNTER 2024-01-05 15:25 | Inpatient (IN) | payer MEDICARE, OTHER ==
[~2024-01-05] VITALS: Ht 172.7 cm; Wt 74.8 kg
[2024-01-05] MEDS ORDERED: Ondansetron HCl 2 MG / ML 2ML Vial IV ONE (15:50)
[2024-01-05 16:16] LABS: BASOPHILS ABSOLUTE AUTO 0.04 K/mm3 (0.00-0.23); BASOPHILS PERCENT AUTO 1 % (0-2); EOSINOPHILS ABSOLUTE AUTO 0.11 K/mm3 (0.00-0.68); EOSINOPHILS PERCENT AUTO 2 % (0-6); Hemoglobin 13.3 g/dL (13.5-17.5); IMMATURE GRAN ABSOLUTE AUTO 0.02 K/mm3 (0.00-0.10); IMMATURE GRAN PERCENT AUTO 0 % (0-1); LYMPHOCYTES ABSOLUTE AUTO 0.65 K/mm3 (0.84-5.20); LYMPHOCYTES PERCENT AUTO 12 % (21-46); MONOCYTES ABSOLUTE AUTO 0.69 K/mm3 (0.16-1.47); MONOCYTES PERCENT AUTO 12 % (4-13); Mean Corpuscular HGB 29.9 pg (26.0-34.0); Mean Corpuscular HGB Conc 34.1 g/dL (31.5-36.5); Mean Corpuscular Volume 88 fL (80-100); Mean Platelet Volume 10.1 fL (9.1-12.4); NEUTROPHILS ABSOLUTE AUTO 4.08 K/mm3 (1.96-9.15); NEUTROPHILS PERCENT AUTO 73 % (41-73); Platelet Count 123 K/mm3 (150-400); Red Blood Cell Count 4.45 M/mm3 (4.30-5.90); White Blood Cell Count 5.59 K/mm3 (4.00-11.30)
[2024-01-05 16:30] LABS: Source, Urine Clean Catch
[2024-01-05 16:33] LABS: Bilirubin, Urine Neg (Neg); Blood, Urine Neg (Neg); Color, Urine Yellow (P-Yellow); Glucose Qualitative, Urine Neg (Neg); Ketones, Urine 1+ (Neg); Leukocyte Esterase, Urine 1+ (Neg); Nitrite, Urine Neg (Neg); Protein, Urine 1+ (Neg); Specific Gravity, Urine 1.015 (1.003-1.022); Urobilinogen, Urine NORM (Normal)
[2024-01-05 16:38] LABS: Albumin, Blood 2.7 g/dL (3.4-5.0); Albumin/Globulin Ratio 0.5 (0.8-1.8); Bilirubin, Total 2.6 mg/dL (0.1-1.0); Bun/Creatinine Ratio 27.8 (12.0-20.0); Calcium, Blood 8.5 mg/dL (8.5-10.1); Creatinine, Blood 0.94 mg/dL (0.60-1.20); Globulin, Blood 5.3 g/dL (2.2-4.0); Potassium, Blood 4.2 mmol/L (3.5-5.5)
[2024-01-05 16:46] LABS: Appearance, Urine Hazy (Clear); Hyaline Casts 0-2 /lpf (0-2); Mucus Light (0-Heavy); Red Blood Cells, Urine 0-2 /hpf (0-2); Squamous Epithelial Cells Rare /hpf (Few)
[2024-01-05 16:47] LABS: Bacteria Mod /hpf
[2024-01-05] MEDS ORDERED: Lactulose 200 GM/300 ML Enema 300ML BTL PR ONE (17:45)
[2024-01-05] MEDS ORDERED: Ondansetron HCl 2 MG / ML 2ML Vial IV PRN (18:15)
[2024-01-05] MEDS ORDERED: NS 1,000 ML IV SCH (18:15)
[2024-01-05 18:16] LABS: International Normalized Ratio 1.29; Prothrombin Time Results 13.5 Sec (9.7-11.5)
[2024-01-05] MEDS ORDERED: Magnesium Sulf 2 GM/Water 50ML 50 ML IV ONE (18:20)
[2024-01-05] MEDS ORDERED: Lactulose 20 GM/30 ML UDC PO SCH (18:30)
[2024-01-05] MEDS ORDERED: NS 1,000 ML IV ONE (18:34)
[2024-01-05] MEDS ORDERED: RifAXIMin 550 MG Tablet PO SCH (19:00)
[2024-01-05] MEDS ORDERED: ALLO100 PO (20:37)
[2024-01-05] MEDS ORDERED: LASIX20 M2 PO (20:38)
[2024-01-05 20:56] VITALS: BP 147/86
[2024-01-05] MEDS ORDERED: Gabapentin 300 MG Cap PO SCH (21:00)
--- NOTE | 2024-01-05 22:50 | NUR ---
PATIENT IS A NEW ADMIT FROM THE ED. AXO X 3-4 FORGETFUL NOT SURE WHERE HIS SPOUSE WENT AFTER SHE WAS IN THE ED. ABLE TO ROLL HIMSELF FROM GURNEY TO BED. NS INFUSING AT 75 ML PER HR AND MAGNESIUM SULFATE FROM THE ED. DENIES CHEST PAIN, SOB, AND N/V. ON ROOM AIR. ORIENTED TO ROOM AND CALL LIGHT SYSTEM. SPOUSE JUST CALLED HIS ROOM AND TALKING TO HER. RESTING IN BED AFTER ASSESSMENT WITH TV ON. CALL LIGHT IN REACH. TM
[2024-01-06 03:35] VITALS: BP 127/73
--- NOTE | 2024-01-06 04:48 | NUR ---
SHIFT SUMMARY PATIENT HAD NO ACUTE CHANGES. AXOX 4 AND SBA TO BR. MENTATION IMPROVING FORGETFUL AT TIMES. NOT SURE IF HE SHOULD GET UP @ 22:45. REMINDED HE COULD STILL SLEEP. DENIES CHEST PAIN, SOB, AND N/V. VSS/AFEBRILE. PIV REMAINS INTACT. NS INFUSING @ 75 X ONE BAG. WATCHED TV 1ST PART OF SHIFT. CALL LIGHT IN REACH. BED IN LOWEST POSITION. WILL CONTINUE TO MONITOR UNTIL DAY SHIFT NURSE ASSUMES CARE.
[2024-01-06] MEDS ORDERED: Omeprazole 20 MG CapCR PO SCH (06:00)
[2024-01-06] MEDS ORDERED: Insulin Human Lispro 100 Units/ML 3ML Syringe SC SCH (07:30)
[2024-01-06 07:35] VITALS: BP 132/76
[2024-01-06] MEDS ORDERED: Metoprolol Tartrate 25 MG Tab PO SCH (08:00)
[2024-01-06] MEDS ORDERED: Spironolactone 50 MG Tab PO SCH (09:00)
[2024-01-06] MEDS ORDERED: Allopurinol 100 MG Tab PO SCH (09:00)
[2024-01-06] MEDS ORDERED: Heparin Sodium,Porcine 5,000 UNIT/0.5 ML SDV SC SCH (09:00)
[2024-01-06] MEDS ORDERED: Potassium Chloride 10 Meq Tablet SA PO SCH (09:00)
[2024-01-06] MEDS ORDERED: ATORVASTATIN CA20 MG PO (14:31)
[2024-01-06 16:56] VITALS: BP 126/74
--- NOTE | 2024-01-06 19:25 | NUR ---
SHIFT SUMMARY PT HAS BEEN VERY SLEEPY THIS SHIFT. NO COMPLAINTS OF PAIN. PT HAS POOR APPETITE THIS AFTERNOON. PT IS HAVING MULTIPLE LOOOSE STOOLS NOW, RECIEVING LACTULOSE. NO ACUTE CHANGES AT THIS TIME. BED ALARM ON FOR SAFETY. CALL LIGHT IN REACH.
[2024-01-06 20:43] VITALS: BP 148/88
[2024-01-06] MEDS ORDERED: Lactobacil 2-S.Thermo-Bifido 1 1 Cap PO SCH (21:00)
[2024-01-07 04:45] VITALS: BP 129/81
--- NOTE | 2024-01-07 06:29 | NUR ---
SUMMARY: PT'S MENTATION IS CLEARING. HE'S A/OX3 AND FORGETFULL TO DATE BUT IS ABLE TO SPECIFY NEEDS WHEN STAFF IN ROOM. LACTULOSE BEING RECIEVED AND PT HAD A FEW EPISODES LOOSE STOOL T/O NOCTE. HE'S DENIED PAIN AND ALL OTHER COMPLAINTS. VSS/AFEBRILE, NO ACUTE CHANGES. WCTM AND REPORT TO DAY RN.
[2024-01-07 07:35] VITALS: BP 115/77
--- NOTE | 2024-01-07 09:17 | NUR ---
DISCHARGE NOTE: PATIENTS SPOUSE WAS EDUCATED ON DISCHARGE INSTRUCTIONS. SHE VERBALIZED UNDERSTANDING OF INSTRUCTIONS AND HAD NO FURTHER QUESTIONS AT THIS TIME. IV WAS TAKEN OUT AND WNL. PATIENT IS TOLERATING PO INTAKE, VOIDING, AND HAVING BMS. PATIENT IS GETTING DRESSED WITH SPOUSE AND THEN WILL CALL WHEN THE PATIENT IS READY TO BE WHEELCHAIRED OUT TO SPOUSES CAR TO BE TAKEN HOME.
--- NOTE | 2024-01-07 10:10 | NUR ---
PATIENT WAS WHEELCHAIRED OUT TO SPOUSES CAR TO BE TAKEN HOME. HE HAS ALL OF HIS PERSONAL BELONGINGS WITH HIM.
== END 2024-01-07 09:47 | disposition home or self-care (01) | DRG 443 ==
LOC: ER 15:25 → MEDS 15:26
PROVIDERS: Physician Assistant; Student in an Organized Health Care Education/Training Program; ADMIT Internal Medicine
DX: K76.82 Hepatic encephalopathy (principal); E11.42 Type 2 diabetes mellitus with diabetic polyneuropathy; E78.5 Hyperlipidemia, unspecified; M10.9 Gout, unspecified; I10 Essential (primary) hypertension; K70.30 Alcoholic cirrhosis of liver without ascites; Z91.148 Patient's other noncompliance with medication regimen for other reason; N40.0 Benign prostatic hyperplasia without lower urinary tract symptoms; D63.8 Anemia in other chronic diseases classified elsewhere; Z98.890 Other specified postprocedural states
CPT/HCPCS: 36415; 80053; 81001; 82140; 82947; 83735; 85025; 85610; 87086; 93005; 93010; 96365; 96372; 96375; 96376; 99285-25; A9270; G0378; J1644; J2405; J3475; J7030

== ENCOUNTER → 2024-01-27 | Outpatient (CLI) | payer MEDICARE, OTHER ==
[~2024-01-27] MED LIST changes: +ATORVASTATIN CA20 MG PO; +LASIX20 M2 PO
[2024-01-27 18:28] LABS: BASOPHILS ABSOLUTE AUTO 0.04 K/mm3 (0.00-0.23); BASOPHILS PERCENT AUTO 1 % (0-2); EOSINOPHILS ABSOLUTE AUTO 0.27 K/mm3 (0.00-0.68); EOSINOPHILS PERCENT AUTO 6 % (0-6); Hematocrit 37.1 % (37.0-53.0); Hemoglobin 12.7 g/dL (13.5-17.5); IMMATURE GRAN ABSOLUTE AUTO 0.04 K/mm3 (0.00-0.10); IMMATURE GRAN PERCENT AUTO 1 % (0-1); LYMPHOCYTES PERCENT AUTO 29 % (21-46); MONOCYTES ABSOLUTE AUTO 0.56 K/mm3 (0.16-1.47); MONOCYTES PERCENT AUTO 12 % (4-13); Mean Corpuscular HGB 30.1 pg (26.0-34.0); Mean Corpuscular HGB Conc 34.2 g/dL (31.5-36.5); Mean Corpuscular Volume 88 fL (80-100); NEUTROPHILS ABSOLUTE AUTO 2.53 K/mm3 (1.96-9.15); NEUTROPHILS PERCENT AUTO 52 % (41-73); RDW Standard Deviation 50.4 fL (35.1-46.3); Red Blood Cell Count 4.22 M/mm3 (4.30-5.90); White Blood Cell Count 4.84 K/mm3 (4.00-11.30)
[2024-01-27 18:37] LABS: Mean Platelet Volume 10.8 fL (9.1-12.4); Platelet Count 132 K/mm3 (150-400)
[2024-01-27 18:39] LABS: Albumin, Blood 2.4 g/dL (3.4-5.0); Albumin/Globulin Ratio 0.5 (0.8-1.8); Bilirubin, Total 1.9 mg/dL (0.1-1.0); Calcium, Blood 8.9 mg/dL (8.5-10.1); Creatinine, Blood 1.54 mg/dL (0.60-1.20); Globulin, Blood 5.3 g/dL (2.2-4.0); Potassium, Blood 4.1 mmol/L (3.5-5.5); Total Protein, Blood 7.7 g/dL (6.4-8.2)
== END ==
LOC: LAB SHORT 18:23 → LAB 18:23
PROVIDERS: Physician Assistant
DX: K72.10 Chronic hepatic failure without coma (principal)
CPT/HCPCS: 80053; 82140; 83690; 85025

== ENCOUNTER 2024-04-27 09:10 | Observation (INO) | payer MEDICARE, OTHER ==
[~2024-04-27] VITALS: Ht 175.3 cm; Wt 72.8 kg
[2024-04-27] MEDS ORDERED: Aspir 8181 MG PO (10:02)
[2024-04-27] MEDS ORDERED: ATOR20 PO (10:02)
[2024-04-27] MEDS ORDERED: ENULOSE10 GM/156 PO (10:03)
[2024-04-27] MEDS ORDERED: Celexa10 MG PO (10:03)
[2024-04-27 10:13] LABS: BASOPHILS ABSOLUTE AUTO 0.04 K/mm3 (0.00-0.23); BASOPHILS PERCENT AUTO 1 % (0-2); EOSINOPHILS ABSOLUTE AUTO 0.16 K/mm3 (0.00-0.68); EOSINOPHILS PERCENT AUTO 4 % (0-6); Hematocrit 40.2 % (37.0-53.0); Hemoglobin 13.8 g/dL (13.5-17.5); IMMATURE GRAN ABSOLUTE AUTO 0.01 K/mm3 (0.00-0.10); IMMATURE GRAN PERCENT AUTO 0 % (0-1); LYMPHOCYTES ABSOLUTE AUTO 1.82 K/mm3 (0.84-5.20); LYMPHOCYTES PERCENT AUTO 41 % (21-46); MONOCYTES ABSOLUTE AUTO 0.52 K/mm3 (0.16-1.47); MONOCYTES PERCENT AUTO 12 % (4-13); Mean Corpuscular HGB 31.2 pg (26.0-34.0); Mean Corpuscular HGB Conc 34.3 g/dL (31.5-36.5); Mean Corpuscular Volume 91 fL (80-100); Mean Platelet Volume 12.1 fL (9.1-12.4); NEUTROPHILS ABSOLUTE AUTO 1.94 K/mm3 (1.96-9.15); NEUTROPHILS PERCENT AUTO 43 % (41-73); Platelet Count 92 K/mm3 (150-400); RDW Coefficient Variation 15.7 % (11.7-14.2); RDW Standard Deviation 52.5 fL (35.1-46.3); Red Blood Cell Count 4.42 M/mm3 (4.30-5.90); White Blood Cell Count 4.49 K/mm3 (4.00-11.30)
[2024-04-27 10:31] LABS: Albumin, Blood 2.9 g/dL (3.4-5.0); Albumin/Globulin Ratio 0.6 (0.8-1.8); Bun/Creatinine Ratio 25.7 (12.0-20.0); Calcium, Blood 9.1 mg/dL (8.5-10.1); Creatinine, Blood 1.13 mg/dL (0.60-1.20); Globulin, Blood 4.9 g/dL (2.2-4.0); Potassium, Blood 4.5 mmol/L (3.5-5.5); Total Protein, Blood 7.8 g/dL (6.4-8.2)
[2024-04-27 10:42] LABS: International Normalized Ratio 1.23
[2024-04-27] MEDS ORDERED: Lactulose 20 GM/30 ML UDC PO ONE (11:10)
[2024-04-27] MEDS ORDERED: FLU VACC TS2024-25(6MOS UP)/PF 45 MCG/0.5 ML SYRINGE IM PRN (11:25)
[2024-04-27] MEDS ORDERED: Lactulose 20 GM/30 ML UDC PO SCH (13:00)
[2024-04-27] MEDS ORDERED: Metoprolol Tartrate 25 MG Tab PO SCH (17:00)
[2024-04-27 17:16] VITALS: BP 138/82
--- NOTE | 2024-04-27 17:59 | NUR ---
SHIFT SUMMARY PT A NEW ADMIT THIS EVENING, ALERT TO PLACE, SELF, AND PERSON. UNABLE TO DETERMINE TIME. COOPERATIVE AND FOLLOWS DIRECTIONS. NPO AT THIS TIME. ORIENTED TO THE ROOM AND CALL LIGHT. SBA TO THE BR. NO COMPLAINTS UPON ADMIT. PERUVIAN MAY BE HIS FIRST LANGUAGE BUT APPEARED TO UNDERSTAND SIMPLE INSTRUCTIONS. LIVES WITH HIS BUT SHE WAS NOT AT THE BS UPON ADMIT. PT UNABLE TO IDENTIFY HIS MEDICATIONS, WILL WAIT FOR TO CONFIRM. BA ON. CALL LIGHT WITHIN REACH, BED LOCKED AND IN THE LOWEST POSITION. WILL REPORT TO ONCOMING NURSE.
[2024-04-27 19:16] VITALS: BP 133/85
[2024-04-27] MEDS ORDERED: RifAXIMin 550 MG Tablet PO SCH (21:00)
[2024-04-28 04:09] VITALS: BP 128/83
[2024-04-28] MEDS ORDERED: Omeprazole 20 MG CapCR PO SCH (06:00)
[2024-04-28 06:13] LABS: BASOPHILS ABSOLUTE AUTO 0.06 K/mm3 (0.00-0.23); BASOPHILS PERCENT AUTO 2 % (0-2); EOSINOPHILS PERCENT AUTO 6 % (0-6); Hematocrit 41.1 % (37.0-53.0); Hemoglobin 14.1 g/dL (13.5-17.5); IMMATURE GRAN ABSOLUTE AUTO 0.01 K/mm3 (0.00-0.10); IMMATURE GRAN PERCENT AUTO 0 % (0-1); LYMPHOCYTES ABSOLUTE AUTO 1.31 K/mm3 (0.84-5.20); LYMPHOCYTES PERCENT AUTO 37 % (21-46); MONOCYTES ABSOLUTE AUTO 0.47 K/mm3 (0.16-1.47); MONOCYTES PERCENT AUTO 13 % (4-13); Mean Corpuscular HGB 31.3 pg (26.0-34.0); Mean Corpuscular HGB Conc 34.3 g/dL (31.5-36.5); Mean Corpuscular Volume 91 fL (80-100); Mean Platelet Volume 10.8 fL (9.1-12.4); NEUTROPHILS ABSOLUTE AUTO 1.48 K/mm3 (1.96-9.15); NEUTROPHILS PERCENT AUTO 42 % (41-73); Platelet Count 74 K/mm3 (150-400); RDW Coefficient Variation 15.7 % (11.7-14.2); RDW Standard Deviation 52.3 fL (35.1-46.3); Red Blood Cell Count 4.51 M/mm3 (4.30-5.90); White Blood Cell Count 3.53 K/mm3 (4.00-11.30)
[2024-04-28 06:33] LABS: Albumin, Blood 2.7 g/dL (3.4-5.0); Albumin/Globulin Ratio 0.6 (0.8-1.8); Bilirubin, Total 2.2 mg/dL (0.1-1.0); Bun/Creatinine Ratio 24.5 (12.0-20.0); Creatinine, Blood 0.98 mg/dL (0.60-1.20); Globulin, Blood 4.6 g/dL (2.2-4.0); Potassium, Blood 4.1 mmol/L (3.5-5.5); Total Protein, Blood 7.3 g/dL (6.4-8.2)
[2024-04-28 07:36] VITALS: BP 141/80
[2024-04-28] MEDS ORDERED: Furosemide 40 MG Tab PO SCH (09:00)
[2024-04-28] MEDS ORDERED: Allopurinol 100 MG Tab PO SCH (09:00)
[2024-04-28] MEDS ORDERED: Spironolactone 50 MG Tab PO SCH (09:00)
[2024-04-28] MEDS ORDERED: Atorvastatin 10 MG Tab PO SCH (09:00)
[2024-04-28] MEDS ORDERED: Aspirin 81 MG TabEC PO SCH (09:00)
--- NOTE | 2024-04-28 14:20 | NUR ---
DISCHARGE SUMMARY PT DISCHARGED TO HOME, PICKED UP BY HIS . TAKEN TO THEIR VEHICLE BY WHEELCHAIR. DISCHARGE EDUCATION AND INFORMATION PROVIDED TO THE PT. MEDICATION FAXED TO THE PHARMACY OF HIS CHOICE. IV REMOVED. PERSONAL BELONGINGS RETURNED.
== END 2024-04-28 14:20 | disposition home or self-care (01) ==
LOC: ER 09:10 → MEDS 09:12 → ER 11:20 → MEDS 11:20 → ENPENDDIS 04-28 13:02 → MEDS 04-28 14:20
PROVIDERS: Emergency Medicine; Physician Assistant; ADMIT Family Medicine
DX: K76.82 Hepatic encephalopathy (principal); K72.10 Chronic hepatic failure without coma; E78.5 Hyperlipidemia, unspecified; M10.9 Gout, unspecified; Z79.899 Other long term (current) drug therapy; Z79.82 Long term (current) use of aspirin; Z87.891 Personal history of nicotine dependence; Z88.8 Allergy status to other drugs, medicaments and biological substances; D69.6 Thrombocytopenia, unspecified
CPT/HCPCS: 36415; 80053; 82140; 82947; 85025; 85610; 99285; A9270; G0378

== ENCOUNTER → 2024-06-17 | Outpatient (CLI) | payer MEDICARE, OTHER ==
[~2024-06-17] MED LIST changes: +ATOR20 PO; +Aspir 8181 MG PO; +CONSTULOSE10 GM/155 PR; +Celexa10 MG PO; +ENULOSE10 GM/156 PR
[2024-06-17 10:51] LABS: U Amphetamine Screen Not Detected; U Barbituate Screen Not Detected; U Benzodiazapine Screen Not Detected; U Buprenorphine Screen Not Detected; U Cannabinoids Screen Not Detected; U Cocaine Screen Not Detected; U Methadone Screen Not Detected; U Methamphetamine Screen Not Detected; U Opiates Screen Not Detected; U Oxycodone Screen Not Detected; U Phencyclidine Screen Not Detected
[2024-06-18 18:26] LABS: ETHYL GLUCURONIDE SCRN RFX,URN Negative ng/mL (Cutoff 500)
[2024-06-22 07:37] LABS: 3-OH-COTININE, URN, QUANT <50 ng/mL; ANABASINE, URN, QUANT <5 ng/mL; COTININE, URN, QUANT <15 ng/mL; NICOTINE, URN, QUANT <15 ng/mL
== END | disposition home or self-care (01) ==
LOC: LAB SHORT 08:56 → LAB 08:56 → LAB FUT 06-15 16:00
PROVIDERS: Internal Medicine
DX: Z01.812 Encounter for preprocedural laboratory examination (principal); K70.31 Alcoholic cirrhosis of liver with ascites; K74.60 Unspecified cirrhosis of liver; F17.200 Nicotine dependence, unspecified, uncomplicated; F10.129 Alcohol abuse with intoxication, unspecified; F19.10 Other psychoactive substance abuse, uncomplicated
CPT/HCPCS: G0480

== ENCOUNTER 2024-12-19 15:40 | Inpatient (IN) | payer MEDICARE, OTHER ==
[~2024-12-19] VITALS: Ht 172.7 cm; Wt 75.7 kg
[2024-12-19 16:27] LABS: BASOPHILS ABSOLUTE AUTO 0.03 K/mm3 (0.00-0.23); BASOPHILS PERCENT AUTO 1 % (0-2); EOSINOPHILS ABSOLUTE AUTO 0.21 K/mm3 (0.00-0.68); EOSINOPHILS PERCENT AUTO 4 % (0-6); Hemoglobin 12.2 g/dL (13.5-17.5); IMMATURE GRAN ABSOLUTE AUTO 0.02 K/mm3 (0.00-0.10); IMMATURE GRAN PERCENT AUTO 0 % (0-1); LYMPHOCYTES ABSOLUTE AUTO 1.42 K/mm3 (0.84-5.20); LYMPHOCYTES PERCENT AUTO 27 % (21-46); MONOCYTES ABSOLUTE AUTO 0.79 K/mm3 (0.16-1.47); MONOCYTES PERCENT AUTO 15 % (4-13); Mean Corpuscular HGB 31.4 pg (26.0-34.0); Mean Corpuscular HGB Conc 33.9 g/dL (31.5-36.5); Mean Corpuscular Volume 93 fL (80-100); Mean Platelet Volume 11.4 fL (9.1-12.4); NEUTROPHILS ABSOLUTE AUTO 2.83 K/mm3 (1.96-9.15); NEUTROPHILS PERCENT AUTO 53 % (41-73); Platelet Count 101 K/mm3 (150-400); RDW Coefficient Variation 15.2 % (11.7-14.2); RDW Standard Deviation 51.9 fL (35.1-46.3); Red Blood Cell Count 3.88 M/mm3 (4.30-5.90)
[2024-12-19 16:40] LABS: International Normalized Ratio 1.22; Prothrombin Time Results 13.2 Sec (9.7-11.5)
[2024-12-19 16:52] LABS: Albumin, Blood 3.2 g/dL (3.4-5.0); Albumin/Globulin Ratio 0.8 (0.8-1.8); Bilirubin, Total 1.7 mg/dL (0.1-1.0); Calcium, Blood 9.4 mg/dL (8.5-10.1); Creatinine, Blood 1.76 mg/dL (0.60-1.20); Globulin, Blood 4.2 g/dL (2.2-4.0); Potassium, Blood 4.8 mmol/L (3.5-5.5); Total Protein, Blood 7.4 g/dL (6.4-8.2)
[2024-12-19 17:24] LABS: Source, Urine Clean Catch
[2024-12-19 17:26] LABS: Appearance, Urine Clear (Clear); Bilirubin, Urine Neg (Neg); Blood, Urine Neg (Neg); Color, Urine Yellow (P-Yellow); Glucose Qualitative, Urine Neg (Neg); Ketones, Urine Neg (Neg); Leukocyte Esterase, Urine 1+ (Neg); Nitrite, Urine Neg (Neg); Protein, Urine 1+ (Neg); Specific Gravity, Urine 1.015 (1.003-1.022); Urobilinogen, Urine NORM (Normal)
[2024-12-19 17:37] LABS: Bacteria Not Seen /hpf; Red Blood Cells, Urine 0-2 /hpf (0-2); Squamous Epithelial Cells Rare /hpf (Few)
[2024-12-19] MEDS ORDERED: Lactulose 20 GM/30 ML UDC PO ONE (19:00)
[2024-12-19] MEDS ORDERED: Ondansetron 4 MG TAB PO PRN (20:00)
[2024-12-19] MEDS ORDERED: NS 1,000 ML IV SCH (20:00)
[2024-12-19 20:17] LABS: Phosphorus, Blood 3.6 mg/dL (2.5-4.9)
[2024-12-19] MEDS ORDERED: Lactulose 20 GM/30 ML UDC PO SCH (23:00)
[2024-12-20 00:28] LABS: BASOPHILS ABSOLUTE AUTO 0.03 K/mm3 (0.00-0.23); BASOPHILS PERCENT AUTO 1 % (0-2); EOSINOPHILS ABSOLUTE AUTO 0.18 K/mm3 (0.00-0.68); EOSINOPHILS PERCENT AUTO 5 % (0-6); Hematocrit 29.6 % (37.0-53.0); Hemoglobin 10.2 g/dL (13.5-17.5); IMMATURE GRAN ABSOLUTE AUTO 0.03 K/mm3 (0.00-0.10); IMMATURE GRAN PERCENT AUTO 1 % (0-1); LYMPHOCYTES ABSOLUTE AUTO 0.97 K/mm3 (0.84-5.20); LYMPHOCYTES PERCENT AUTO 25 % (21-46); MONOCYTES ABSOLUTE AUTO 0.46 K/mm3 (0.16-1.47); MONOCYTES PERCENT AUTO 12 % (4-13); Mean Corpuscular HGB 32.2 pg (26.0-34.0); Mean Corpuscular HGB Conc 34.5 g/dL (31.5-36.5); Mean Corpuscular Volume 93 fL (80-100); Mean Platelet Volume 11.4 fL (9.1-12.4); NEUTROPHILS ABSOLUTE AUTO 2.22 K/mm3 (1.96-9.15); NEUTROPHILS PERCENT AUTO 57 % (41-73); Platelet Count 68 K/mm3 (150-400); RDW Coefficient Variation 15.3 % (11.7-14.2); RDW Standard Deviation 52.5 fL (35.1-46.3); Red Blood Cell Count 3.17 M/mm3 (4.30-5.90); White Blood Cell Count 3.89 K/mm3 (4.00-11.30)
[2024-12-20] MEDS ORDERED: VALA500 PO (00:42)
[2024-12-20] MEDS ORDERED: GABA300 (00:43)
[2024-12-20] MEDS ORDERED: GABA300 PO (00:44)
[2024-12-20] MEDS ORDERED: KLOR-CON 1010 ME9 PO (00:46)
[2024-12-20 01:18] VITALS: BP 113/70
[2024-12-20 04:17] VITALS: BP 115/66
--- NOTE | 2024-12-20 06:16 | NUR ---
THEATRE PROFESSOR SUMMARY: PT ADMITTED FROM ER FOR HEPATIC ENEPHALOPATHY, AMS. PT PRIMARILY SPEAKS CHINESE. DENIES PAIN. NO ACUTE EVENTS SINCE ADMISSION TO MEDICAL FLOOR. PLEASANT AND COOPERATIVE WITH CARE. PT IS NPO. Q6H CBG CHECKS, LAST READIN AT 0615. PT TO HAVE RENAL / BLADDER ULTRASOUND TODAY. INDEPENDENT WITH BED MOBILITY. 1 -2 PERSON SBA WITH TRANSFERS DUE TO COMMUNCATION AND WEAKNESS. BED ALARM ON FOR SAFETY. BED IN LOWEST POSITION. CALL LIGHT IN REACH. CARES ONGOING ORDERED.
[2024-12-20 06:31] LABS: BASOPHILS ABSOLUTE AUTO 0.03 K/mm3 (0.00-0.23); BASOPHILS PERCENT AUTO 1 % (0-2); EOSINOPHILS ABSOLUTE AUTO 0.19 K/mm3 (0.00-0.68); EOSINOPHILS PERCENT AUTO 5 % (0-6); Hematocrit 35.3 % (37.0-53.0); Hemoglobin 11.8 g/dL (13.5-17.5); IMMATURE GRAN ABSOLUTE AUTO 0.01 K/mm3 (0.00-0.10); IMMATURE GRAN PERCENT AUTO 0 % (0-1); LYMPHOCYTES ABSOLUTE AUTO 1.04 K/mm3 (0.84-5.20); LYMPHOCYTES PERCENT AUTO 27 % (21-46); MONOCYTES ABSOLUTE AUTO 0.44 K/mm3 (0.16-1.47); MONOCYTES PERCENT AUTO 11 % (4-13); Mean Corpuscular HGB 31.1 pg (26.0-34.0); Mean Corpuscular HGB Conc 33.4 g/dL (31.5-36.5); Mean Corpuscular Volume 93 fL (80-100); Mean Platelet Volume 11.4 fL (9.1-12.4); NEUTROPHILS ABSOLUTE AUTO 2.14 K/mm3 (1.96-9.15); NEUTROPHILS PERCENT AUTO 56 % (41-73); Platelet Count 73 K/mm3 (150-400); RDW Coefficient Variation 15.2 % (11.7-14.2); RDW Standard Deviation 51.8 fL (35.1-46.3); Red Blood Cell Count 3.79 M/mm3 (4.30-5.90); White Blood Cell Count 3.85 K/mm3 (4.00-11.30)
[2024-12-20 06:52] LABS: Albumin, Blood 3.1 g/dL (3.4-5.0); Albumin/Globulin Ratio 0.8 (0.8-1.8); Bilirubin, Total 1.8 mg/dL (0.1-1.0); Bun/Creatinine Ratio 25.7 (12.0-20.0); Calcium, Blood 9.5 mg/dL (8.5-10.1); Creatinine, Blood 1.36 mg/dL (0.60-1.20); Magnesium, Blood 1.9 mg/dL (1.6-2.4); Potassium, Blood 4.7 mmol/L (3.5-5.5); Total Protein, Blood 7.1 g/dL (6.4-8.2)
[2024-12-20 07:25] VITALS: BP 119/64
[2024-12-20] MEDS ORDERED: Enoxaparin 40 MG/0.4 ML SYR SC SCH (09:00)
--- NOTE | 2024-12-20 10:25 | NUR ---
ASSUMED CARE OF PT VERY PLEASENT [place] SPEAKING CONFUSED PT. PT CAN FOLLOW DIRECTIONS WELL BUT ISNT ABLE TO EXPRESS NEEDS. WAS ABLE TO ASSIST TO BSC WITHOUT INCIDENT, PT IS STABLE ON FEET. PT HAS NO C/O PAIN JUST SAYING WIFES NAME. I SPOKE WITH AND SHE WILL BE IN THIS AFTERNOON.
[2024-12-20 15:50] VITALS: BP 118/64
--- NOTE | 2024-12-20 17:13 | NUR ---
PT DOING MUCH BETTER ABLE TO UNDERSTAND AND NOW SPEAK IN SENTENCES. RENAL US DONE, AT BEDSIDE SPEAKING WITH PT. SHE STATES HE IS DOING MUCH BETTER BUT STILL NOT HIMSELF AND IF POSSIBLE WOULD LIKE AN MRI BECAUSE PT COORDINATION HAS BEEN OF FOR A few months now. so far pt has been doing well and was able to feed self lunch. pt cont to be cooperative even though he is very anxious to go home. will cont to monitor
[2024-12-20 19:26] VITALS: BP 117/74
[2024-12-21 02:49] VITALS: BP 123/73
--- NOTE | 2024-12-21 04:54 | NUR ---
SHIFT SUMMARY PT REMAINS ALERT AND ORIENTED TO SELF, TIME AND PLACE HOWEVER CONTINUES TO BE CONFUSED WITH THE SITUATION. VSS ON RA. PT IMPULSIVE, BED ALARM REMAINS SET. CONTINUOUS FLUIDS RUNNING THROUGHOUT NIGHT. EDUCATED ON LACTULOSE. 5 BMs THROUGHOUT NIGHT. NO FURTHER QUESTIONS OR CONCERNS AT THIS TIME. WILL CONTINUE WITH PLAN OF CARE.
[2024-12-21 05:20] LABS: BASOPHILS ABSOLUTE AUTO 0.03 K/mm3 (0.00-0.23); BASOPHILS PERCENT AUTO 1 % (0-2); EOSINOPHILS ABSOLUTE AUTO 0.17 K/mm3 (0.00-0.68); EOSINOPHILS PERCENT AUTO 5 % (0-6); Hematocrit 33.3 % (37.0-53.0); Hemoglobin 11.5 g/dL (13.5-17.5); IMMATURE GRAN ABSOLUTE AUTO 0.01 K/mm3 (0.00-0.10); IMMATURE GRAN PERCENT AUTO 0 % (0-1); LYMPHOCYTES ABSOLUTE AUTO 1.02 K/mm3 (0.84-5.20); LYMPHOCYTES PERCENT AUTO 31 % (21-46); MONOCYTES ABSOLUTE AUTO 0.37 K/mm3 (0.16-1.47); MONOCYTES PERCENT AUTO 11 % (4-13); Mean Corpuscular HGB 31.8 pg (26.0-34.0); Mean Corpuscular HGB Conc 34.5 g/dL (31.5-36.5); Mean Corpuscular Volume 92 fL (80-100); Mean Platelet Volume 11.9 fL (9.1-12.4); NEUTROPHILS ABSOLUTE AUTO 1.65 K/mm3 (1.96-9.15); NEUTROPHILS PERCENT AUTO 51 % (41-73); Platelet Count 72 K/mm3 (150-400); RDW Coefficient Variation 15.3 % (11.7-14.2); RDW Standard Deviation 51.7 fL (35.1-46.3); Red Blood Cell Count 3.62 M/mm3 (4.30-5.90); White Blood Cell Count 3.25 K/mm3 (4.00-11.30)
[2024-12-21 05:36] LABS: Albumin, Blood 2.9 g/dL (3.4-5.0); Albumin/Globulin Ratio 0.8 (0.8-1.8); Bilirubin, Total 1.6 mg/dL (0.1-1.0); Bun/Creatinine Ratio 21.8 (12.0-20.0); Calcium, Blood 8.9 mg/dL (8.5-10.1); Creatinine, Blood 1.19 mg/dL (0.60-1.20); Globulin, Blood 3.8 g/dL (2.2-4.0); Potassium, Blood 4.5 mmol/L (3.5-5.5); Total Protein, Blood 6.7 g/dL (6.4-8.2)
[2024-12-21 07:26] VITALS: BP 121/72
[2024-12-21] MEDS ORDERED: LACT10SY PO (14:31)
[2024-12-21 15:21] VITALS: BP 121/74
--- NOTE | 2024-12-21 16:43 | NUR ---
ASSUMED CARE OF PT A/O X 3-4 TODAY DOING MUCH BETTER MENTALLY, PT AMONIA LEVEL IS STILL INCREASED AND HAS BEEN MAGALI LACTULOSE WELL. PT TO START XIFAXAN TODAY TO HELP WITH BLOOD WORK. PT HAS BEEN COOPERATIVE WITH CARE THOUGH HASNT BEEN CALLING WHEN NEEDING TO GET OUT OF BED, PT HAS BEEN STABLE ON FEET WITH MINIMAL ASSIST, BED ALARM IN PLACE. NO C/O PAIN NO S/S OF DISTRESS
[2024-12-21] MEDS ORDERED: Metoprolol Tartrate 25 MG Tab PO SCH (17:00)
[2024-12-21 19:38] VITALS: BP 115/66
[2024-12-21] MEDS ORDERED: RifAXIMin 550 MG Tablet PO SCH (21:00)
[2024-12-22 02:53] VITALS: BP 116/66
--- NOTE | 2024-12-22 03:24 | NUR ---
PRODUCT DEVELOPMENT CHEMIST SUMMARY VSS. ADMIT DX HEPATIC ENCEPHALOPATHY. VERBAL RESPONSE APPROPRIATE, SPEAKS BOTH ROMANSH AND LAO. UP WITH ASSIST FOR POSSIBLE UNSTEADINESS. ENCOURAGED TO USE CALL LIGHT, AT TIMES DOES USE CALL LIGHT. BED ALARM ON. HAS BEEN RESTING QUIETLY WITH INTERRUPTIONS - QUESTIONING TIME HE LOOKED AT THE CLOCK ON THE WALL. CURRENTLY RESTING QUIETLY. CALL LIGHT IN REACH, RAILS UP X 2 AND BED IN LOW POSITION FOR SAFETY. WILL CONTINUE TO MONITOR.
[2024-12-22 05:38] LABS: BASOPHILS ABSOLUTE AUTO 0.03 K/mm3 (0.00-0.23); BASOPHILS PERCENT AUTO 1 % (0-2); EOSINOPHILS ABSOLUTE AUTO 0.15 K/mm3 (0.00-0.68); EOSINOPHILS PERCENT AUTO 5 % (0-6); Hematocrit 33.3 % (37.0-53.0); Hemoglobin 11.5 g/dL (13.5-17.5); IMMATURE GRAN PERCENT AUTO 0 % (0-1); LYMPHOCYTES ABSOLUTE AUTO 1.05 K/mm3 (0.84-5.20); LYMPHOCYTES PERCENT AUTO 32 % (21-46); MONOCYTES ABSOLUTE AUTO 0.42 K/mm3 (0.16-1.47); MONOCYTES PERCENT AUTO 13 % (4-13); Mean Corpuscular HGB 31.6 pg (26.0-34.0); Mean Corpuscular HGB Conc 34.5 g/dL (31.5-36.5); Mean Corpuscular Volume 92 fL (80-100); Mean Platelet Volume 12.2 fL (9.1-12.4); NEUTROPHILS ABSOLUTE AUTO 1.63 K/mm3 (1.96-9.15); NEUTROPHILS PERCENT AUTO 50 % (41-73); Platelet Count 68 K/mm3 (150-400); RDW Coefficient Variation 15.2 % (11.7-14.2); Red Blood Cell Count 3.64 M/mm3 (4.30-5.90); White Blood Cell Count 3.28 K/mm3 (4.00-11.30)
[2024-12-22] MEDS ORDERED: Omeprazole 20 MG CapCR PO SCH (06:00)
[2024-12-22 06:01] LABS: Albumin, Blood 2.9 g/dL (3.4-5.0); Albumin/Globulin Ratio 0.8 (0.8-1.8); Bilirubin, Total 1.7 mg/dL (0.1-1.0); Bun/Creatinine Ratio 18.9 (12.0-20.0); Calcium, Blood 9.1 mg/dL (8.5-10.1); Creatinine, Blood 1.11 mg/dL (0.60-1.20); Globulin, Blood 3.7 g/dL (2.2-4.0); Potassium, Blood 4.5 mmol/L (3.5-5.5); Total Protein, Blood 6.6 g/dL (6.4-8.2)
[2024-12-22 07:17] VITALS: BP 120/74
[2024-12-22] MEDS ORDERED: Spironolactone 50 MG Tab PO SCH (09:00)
[2024-12-22] MEDS ORDERED: Allopurinol 100 MG Tab PO SCH (09:00)
[2024-12-22] MEDS ORDERED: Atorvastatin 10 MG Tab PO SCH (09:00)
[2024-12-22] MEDS ORDERED: ValACYClovir HCL 500 MG Tab PO SCH (09:00)
[2024-12-22] MEDS ORDERED: Aspirin 81 MG TabEC PO SCH (09:00)
[2024-12-22] MEDS ORDERED: Furosemide 40 MG Tab PO SCH (09:00)
[2024-12-22] MEDS ORDERED: Potassium Chloride 10 Meq Tablet SA PO SCH (09:00)
[2024-12-22 15:21] VITALS: BP 112/74
[2024-12-22 19:17] VITALS: BP 108/71
--- NOTE | 2024-12-22 19:44 | NUR ---
SHIFT SUMMARY PATIENT ALERT AND INTERACTIVE. PATIENT SPEAKS BOTH ARMENIAN AND ENGLISH. PATIENT UP WITH STAND BY ASSIST. PATIENT IMPULSIVE AT TIMES. PATIENT CONFUSED AT TIMES. INQUIRING ABOUT DISCHARGE. STATES THAT THEY HAVE ABILITY TO DO ENEMAS AT HOME IF NEEDED. PATIENT COOPERATIVE WITH TAKING MEDS. PATIENT UP TO SHOWER WITH STAND BY ASSIST.
[2024-12-23 01:52] VITALS: BP 117/64
--- NOTE | 2024-12-23 04:17 | NUR ---
SHIFT SUMMARY 64 M ADMITTED ON 12/19/24 FULL CODE. NO ACUTE CHANGES THIS SHIFT. PATIENT STILL RECEIVING LACTULOSE AND HAVING MULTIPLE BOWEL MOVEMENTS OVERNIGHT . PATIENT CALLING APPROPRIATELY TO USE BATHROOM WITH ASSISTANCE. NO NEW CHANGES TO REPORT. BED IN LOW POSITION AND CALL LIGHT WITHIN REACH.
[2024-12-23 06:14] LABS: BASOPHILS ABSOLUTE AUTO 0.03 K/mm3 (0.00-0.23); BASOPHILS PERCENT AUTO 1 % (0-2); EOSINOPHILS ABSOLUTE AUTO 0.17 K/mm3 (0.00-0.68); EOSINOPHILS PERCENT AUTO 6 % (0-6); Hematocrit 35.2 % (37.0-53.0); Hemoglobin 11.8 g/dL (13.5-17.5); IMMATURE GRAN ABSOLUTE AUTO 0.01 K/mm3 (0.00-0.10); IMMATURE GRAN PERCENT AUTO 0 % (0-1); LYMPHOCYTES ABSOLUTE AUTO 0.94 K/mm3 (0.84-5.20); LYMPHOCYTES PERCENT AUTO 34 % (21-46); MONOCYTES ABSOLUTE AUTO 0.41 K/mm3 (0.16-1.47); MONOCYTES PERCENT AUTO 15 % (4-13); Mean Corpuscular HGB 32.2 pg (26.0-34.0); Mean Corpuscular HGB Conc 33.5 g/dL (31.5-36.5); Mean Corpuscular Volume 96 fL (80-100); Mean Platelet Volume 12.2 fL (9.1-12.4); NEUTROPHILS ABSOLUTE AUTO 1.25 K/mm3 (1.96-9.15); NEUTROPHILS PERCENT AUTO 44 % (41-73); Platelet Count 65 K/mm3 (150-400); RDW Coefficient Variation 15.4 % (11.7-14.2); RDW Standard Deviation 53.5 fL (35.1-46.3); Red Blood Cell Count 3.66 M/mm3 (4.30-5.90); White Blood Cell Count 2.81 K/mm3 (4.00-11.30)
[2024-12-23 06:38] LABS: Albumin, Blood 2.8 g/dL (3.4-5.0); Albumin/Globulin Ratio 0.7 (0.8-1.8); Bilirubin, Total 1.9 mg/dL (0.1-1.0); Bun/Creatinine Ratio 17.1 (12.0-20.0); Calcium, Blood 8.7 mg/dL (8.5-10.1); Creatinine, Blood 1.05 mg/dL (0.60-1.20); Globulin, Blood 3.8 g/dL (2.2-4.0); Potassium, Blood 4.5 mmol/L (3.5-5.5); Total Protein, Blood 6.6 g/dL (6.4-8.2)
[2024-12-23 07:34] VITALS: BP 131/77
--- NOTE | 2024-12-23 14:36 | NUR ---
DISCHARGE NOTE- PT AND SPOUSE WERE GIVEN VERBAL AND WRITTEN DISCHARGE INSTRUCTIONS AND ACKNOWLEDGED UNDERSTANDING OF THEM. IV DC'D PRIOR TO DISCHARGE. PT ESCORTED OUT VIA WC BY THE TRUCKING SUPERVISOR. NO S&S OF DISTRESS NOTED AT THE TIME OF DISCHARGE.
== END 2024-12-23 14:30 | disposition home or self-care (01) | DRG 442 ==
LOC: ER 15:40 → EDBEDREQ 21:08 → MEDS 21:11 → ERHOLD 21:11 → MEDS 12-20 01:12
PROVIDERS: Family Medicine; Student in an Organized Health Care Education/Training Program; ADMIT Student in an Organized Health Care Education/Training Program
DX: K76.82 Hepatic encephalopathy (principal); D61.818 Other pancytopenia; E72.20 Disorder of urea cycle metabolism, unspecified; N17.9 Acute kidney failure, unspecified; E87.1 Hypo-osmolality and hyponatremia; N40.0 Benign prostatic hyperplasia without lower urinary tract symptoms; I44.0 Atrioventricular block, first degree; E78.5 Hyperlipidemia, unspecified; E80.6 Other disorders of bilirubin metabolism; E11.22 Type 2 diabetes mellitus with diabetic chronic kidney disease; D63.1 Anemia in chronic kidney disease; N18.9 Chronic kidney disease, unspecified; I12.9 Hypertensive chronic kidney disease with stage 1 through stage 4 chronic kidney disease, or unspecified chronic kidney disease; D69.6 Thrombocytopenia, unspecified; N20.0 Calculus of kidney; J32.0 Chronic maxillary sinusitis; K75.81 Nonalcoholic steatohepatitis (NASH); E86.0 Dehydration; K72.10 Chronic hepatic failure without coma; E11.40 Type 2 diabetes mellitus with diabetic neuropathy, unspecified; Z90.49 Acquired absence of other specified parts of digestive tract; Z98.890 Other specified postprocedural states; Z87.891 Personal history of nicotine dependence; Z88.8 Allergy status to other drugs, medicaments and biological substances; Z76.82 Awaiting organ transplant status; Z79.899 Other long term (current) drug therapy; Z79.82 Long term (current) use of aspirin; Z87.19 Personal history of other diseases of the digestive system
CPT/HCPCS: 36415; 70450; 76770; 80053; 80320; 81001; 82140; 82947; 83735; 84100; 85025; 85610; 85730; 87086; 93005; 93010; 94760; 99285-25; A9270; J1650; J7030

== ENCOUNTER 2025-03-13 09:18 | Inpatient (IN) | payer MEDICARE, OTHER ==
[~2025-03-13] VITALS: Ht 175.3 cm; Wt 78.1 kg
[~2025-03-13 09:18] MED LIST changes: +GABA300; +KLOR-CON 1010 ME9 PO; +VALA500 PO
[2025-03-13 11:24] LABS: Source, Urine Clean Catch
[2025-03-13 11:34] LABS: Bilirubin, Urine Neg (Neg); Color, Urine Yellow (P-Yellow); Glucose Qualitative, Urine Neg (Neg); Ketones, Urine Neg (Neg); Leukocyte Esterase, Urine Neg (Neg); Protein, Urine 1+ (Neg); Specific Gravity, Urine 1.020 (1.003-1.022); Urobilinogen, Urine NORM (Normal)
[2025-03-13 11:40] LABS: BASOPHILS ABSOLUTE AUTO 0.04 K/mm3 (0.00-0.23); BASOPHILS PERCENT AUTO 1 % (0-2); EOSINOPHILS ABSOLUTE AUTO 0.22 K/mm3 (0.00-0.68); EOSINOPHILS PERCENT AUTO 5 % (0-6); Hematocrit 36.4 % (37.0-53.0); Hemoglobin 12.0 g/dL (13.5-17.5); IMMATURE GRAN ABSOLUTE AUTO 0.00 K/mm3 (0.00-0.10); IMMATURE GRAN PERCENT AUTO 0 % (0-1); LYMPHOCYTES ABSOLUTE AUTO 1.21 K/mm3 (0.84-5.20); LYMPHOCYTES PERCENT AUTO 27 % (21-46); MONOCYTES ABSOLUTE AUTO 0.61 K/mm3 (0.16-1.47); MONOCYTES PERCENT AUTO 14 % (4-13); Mean Corpuscular HGB Conc 33.0 g/dL (31.5-36.5); Mean Corpuscular Volume 91 fL (80-100); NEUTROPHILS ABSOLUTE AUTO 2.43 K/mm3 (1.96-9.15); NEUTROPHILS PERCENT AUTO 54 % (41-73); NRBC ABSOLUTE 0.00 K/mm3 (0.00-0.02); NRBC Auto 0.0 /100 WBC (0.0-0.2); Platelet Count 91 K/mm3 (150-400); RDW Coefficient Variation 16.2 % (11.7-14.2); RDW Standard Deviation 54.2 fL (35.1-46.3)
[2025-03-13 11:53] LABS: Prothrombin Time Results 13.5 Sec (9.7-11.5)
[2025-03-13 12:05] LABS: Alanine Aminotransfer (ALT/SGP 33.0 U/L (12-78); Albumin, Blood 3.1 g/dL (3.4-5.0); Albumin/Globulin Ratio 0.7 (0.8-1.8); Anion Gap 10.0 mmol/L (3-11); Aspartate Aminotrans (AST/SGOT 39.0 U/L (12-37); Bilirubin, Total 1.7 mg/dL (0.1-1.0); Blood Urea Nitrogen 24.0 mg/dL (8-24); CO2, Blood 21.0 mmol/L (21-32); Calcium, Blood 8.6 mg/dL (8.5-10.1); Chloride, Blood 106.0 mmol/L (98-108); Creatinine, Blood 1.17 mg/dL (0.60-1.20); Globulin, Blood 4.6 g/dL (2.2-4.0); Glucose, Blood 121.0 mg/dL (70-99); Potassium, Blood 4.9 mmol/L (3.5-5.5); Sodium, Blood 132.0 mmol/L (136-145); Total Protein, Blood 7.7 g/dL (6.4-8.2)
[2025-03-13] MEDS ORDERED: CARVEDILOL3.125 MG PO (20:07)
[2025-03-13 20:09] VITALS: BP 137/76
--- NOTE | 2025-03-13 21:38 | NUR ---
PATIENT IS A NEW ADMIT FROM THE ED. ALERT ORIENTED AND SBA FROM GURNEY TO BED. DENIES CHEST PAIN, SOB, AND N/V. ABRASION ON NOSE FROM HOME GLF AND SCRATHCES ON BLE REPORTING LIVES ON FARM. ROOM AIR. NO FAMILY PRESENT ON ADMIT. REPORTS WANTS TO WATCH TV AFTER ASSESSMENT. ORIENTED TO ROOM AND CALL LIGHT SYSTEM. WCTM.
--- NOTE | 2025-03-14 04:24 | NUR ---
SHIFT SUMMARY PATIENT HAD NO ACUTE CHANGES. ALERT ORIENTED AND SBA TO BR. DENIES CHEST PAIN, SOB, AND N/V. VSS/AFEBRILE. SLEPT MOST OF THE SHIFT. PIV INTACT. COOPERATIVE WITH CARE. CALL LIGHT IN REACH. BED IN LOWEST POSITION. WILL CONTINUE TO MONITOR UNTIL DAY SHIFT NURSE ASSUMES CARE.
[2025-03-14 04:42] VITALS: BP 110/67
[2025-03-14 06:07] LABS: BASOPHILS ABSOLUTE AUTO 0.02 K/mm3 (0.00-0.23); BASOPHILS PERCENT AUTO 1 % (0-2); EOSINOPHILS ABSOLUTE AUTO 0.17 K/mm3 (0.00-0.68); EOSINOPHILS PERCENT AUTO 5 % (0-6); Hematocrit 31.3 % (37.0-53.0); Hemoglobin 10.7 g/dL (13.5-17.5); IMMATURE GRAN ABSOLUTE AUTO 0.00 K/mm3 (0.00-0.10); IMMATURE GRAN PERCENT AUTO 0 % (0-1); LYMPHOCYTES ABSOLUTE AUTO 0.94 K/mm3 (0.84-5.20); LYMPHOCYTES PERCENT AUTO 27 % (21-46); MONOCYTES ABSOLUTE AUTO 0.51 K/mm3 (0.16-1.47); MONOCYTES PERCENT AUTO 15 % (4-13); Mean Corpuscular HGB Conc 34.2 g/dL (31.5-36.5); Mean Corpuscular Volume 88 fL (80-100); NEUTROPHILS ABSOLUTE AUTO 1.79 K/mm3 (1.96-9.15); NEUTROPHILS PERCENT AUTO 52 % (41-73); NRBC ABSOLUTE 0.00 K/mm3 (0.00-0.02); NRBC Auto 0.0 /100 WBC (0.0-0.2); Platelet Count 76 K/mm3 (150-400); RDW Coefficient Variation 16.0 % (11.7-14.2); RDW Standard Deviation 52.8 fL (35.1-46.3)
[2025-03-14 06:32] LABS: Alanine Aminotransfer (ALT/SGP 26.0 U/L (12-78); Albumin, Blood 2.8 g/dL (3.4-5.0); Albumin/Globulin Ratio 0.8 (0.8-1.8); Anion Gap 11.0 mmol/L (3-11); Aspartate Aminotrans (AST/SGOT 29.0 U/L (12-37); Bilirubin, Total 1.5 mg/dL (0.1-1.0); Blood Urea Nitrogen 20.0 mg/dL (8-24); CO2, Blood 20.0 mmol/L (21-32); Calcium, Blood 8.3 mg/dL (8.5-10.1); Chloride, Blood 107.0 mmol/L (98-108); Creatinine, Blood 1.07 mg/dL (0.60-1.20); Globulin, Blood 3.7 g/dL (2.2-4.0); Glucose, Blood 101.0 mg/dL (70-99); Magnesium, Blood 1.7 mg/dL (1.6-2.4); Phosphorus, Blood 3.1 mg/dL (2.5-4.9); Potassium, Blood 4.0 mmol/L (3.5-5.5); Sodium, Blood 134.0 mmol/L (136-145); Total Protein, Blood 6.5 g/dL (6.4-8.2)
[2025-03-14 07:30] VITALS: BP 108/66
[2025-03-14] MEDS ORDERED: NS 1,000 ML IV SCH (13:50)
[2025-03-14 16:27] VITALS: BP 109/74
--- NOTE | 2025-03-14 18:21 | NUR ---
PATIENT DENIES PAIN . USES CALL LIGHT WHEN NEEDING TO AMBULATE. NS RUNNING AT 100 STARTED FIRST BAG. 3 SOFT BOWEL MOVEMENTS TODAY . GOOD APPITITE.
[2025-03-14 19:50] VITALS: BP 115/73
--- NOTE | 2025-03-15 04:24 | NUR ---
SHIFT SUMMARY PATIENT HAD NO ACUTE CHANGES. ALERT ORIENTED AND SBA TO BR. DENIES CHEST PAIN, SOB, AND N/V. VSS/AFEBRILE. PIV INTACT. NS INFUSING @ 100 mL/HR BAG 2 OF 2. COOPERATIVE WITH CARE. CALL LIGHT IN REACH. BED IN LOWEST POSITION. WILL CONTINUE TO MONITOR UNTIL DAY SHIFT NURSE ASSUMES CARE.
[2025-03-15 05:27] VITALS: BP 108/72
[2025-03-15 07:29] VITALS: BP 114/69
[2025-03-15 11:19] LABS: BASOPHILS ABSOLUTE AUTO 0.03 K/mm3 (0.00-0.23); BASOPHILS PERCENT AUTO 1 % (0-2); EOSINOPHILS ABSOLUTE AUTO 0.14 K/mm3 (0.00-0.68); EOSINOPHILS PERCENT AUTO 4 % (0-6); Hematocrit 31.2 % (37.0-53.0); Hemoglobin 10.4 g/dL (13.5-17.5); IMMATURE GRAN ABSOLUTE AUTO 0.01 K/mm3 (0.00-0.10); IMMATURE GRAN PERCENT AUTO 0 % (0-1); LYMPHOCYTES ABSOLUTE AUTO 0.93 K/mm3 (0.84-5.20); LYMPHOCYTES PERCENT AUTO 25 % (21-46); MONOCYTES ABSOLUTE AUTO 0.60 K/mm3 (0.16-1.47); MONOCYTES PERCENT AUTO 16 % (4-13); Mean Corpuscular HGB Conc 33.3 g/dL (31.5-36.5); Mean Corpuscular Volume 92 fL (80-100); NEUTROPHILS ABSOLUTE AUTO 2.08 K/mm3 (1.96-9.15); NEUTROPHILS PERCENT AUTO 55 % (41-73); NRBC ABSOLUTE 0.00 K/mm3 (0.00-0.02); NRBC Auto 0.0 /100 WBC (0.0-0.2); Platelet Count 78 K/mm3 (150-400); RDW Coefficient Variation 16.4 % (11.7-14.2); RDW Standard Deviation 54.7 fL (35.1-46.3)
[2025-03-15 11:41] LABS: Alanine Aminotransfer (ALT/SGP 27.0 U/L (12-78); Albumin, Blood 2.5 g/dL (3.4-5.0); Albumin/Globulin Ratio 0.7 (0.8-1.8); Anion Gap 10.0 mmol/L (3-11); Aspartate Aminotrans (AST/SGOT 29.0 U/L (12-37); Bilirubin, Total 1.1 mg/dL (0.1-1.0); Blood Urea Nitrogen 20.0 mg/dL (8-24); CO2, Blood 19.0 mmol/L (21-32); Calcium, Blood 8.1 mg/dL (8.5-10.1); Chloride, Blood 111.0 mmol/L (98-108); Creatinine, Blood 1.05 mg/dL (0.60-1.20); Globulin, Blood 3.7 g/dL (2.2-4.0); Glucose, Blood 118.0 mg/dL (70-99); Magnesium, Blood 1.5 mg/dL (1.6-2.4); Potassium, Blood 4.5 mmol/L (3.5-5.5); Sodium, Blood 135.0 mmol/L (136-145); Total Protein, Blood 6.2 g/dL (6.4-8.2)
[2025-03-15 15:24] VITALS: BP 139/82
[2025-03-15] MEDS ORDERED: Lactulose 200 GM/300 ML Enema 300ML BTL PR SCH (16:00)
--- NOTE | 2025-03-15 18:29 | NUR ---
SHIFT SUMMARY PT IS A/OX3-4 CONFUSION AT TIMES. UP INDEPENDENT IN THE ROOM. AMMONIA LEVELS CONTINUING UPWARD. CONTINUING LACTULOSE PO PER MAR. LACTULOSE ENEMA GIVEN PER MAR. PT REPORTS 5-6 BM'S THIS SHIFT. AT BEDSIDE THROUGHOUT THIS AFTERNOON. PT IS PLEASANT AND COOPERATIVE WITH CARE AND CALLS APPROPRIATELY USING THE CALL LIGHT.
[2025-03-15 19:40] VITALS: BP 129/79
--- NOTE | 2025-03-15 22:41 | NUR ---
PATIENT NOT WANTING ANOTHE LACTULOSE ENEMA, WILL TRY AGAIN FOR ADMINSTRATION
[2025-03-16 04:20] VITALS: BP 115/75
--- NOTE | 2025-03-16 05:29 | NUR ---
NO ACUTE CHANGES, DIARRHEA, SECOND LACTULOSE ENEMA GIVEN, PATIENT TOLERATED WELL, NPO, TO HAVE MRI TODAY AT 0730, UPPER SORBIAN IS PATIENTS SECOND LANGUAGE, INDEPEDANT IN ROOM, CALL LIGHT WITH IN REACH, WILL RELAY TO PM YOUSIF
[2025-03-16 06:44] LABS: BASOPHILS ABSOLUTE AUTO 0.02 K/mm3 (0.00-0.23); BASOPHILS PERCENT AUTO 1 % (0-2); EOSINOPHILS ABSOLUTE AUTO 0.20 K/mm3 (0.00-0.68); EOSINOPHILS PERCENT AUTO 6 % (0-6); Hematocrit 32.0 % (37.0-53.0); Hemoglobin 10.8 g/dL (13.5-17.5); IMMATURE GRAN ABSOLUTE AUTO 0.01 K/mm3 (0.00-0.10); IMMATURE GRAN PERCENT AUTO 0 % (0-1); LYMPHOCYTES ABSOLUTE AUTO 0.83 K/mm3 (0.84-5.20); LYMPHOCYTES PERCENT AUTO 25 % (21-46); MONOCYTES ABSOLUTE AUTO 0.47 K/mm3 (0.16-1.47); MONOCYTES PERCENT AUTO 14 % (4-13); Mean Corpuscular HGB Conc 33.8 g/dL (31.5-36.5); Mean Corpuscular Volume 90 fL (80-100); NEUTROPHILS ABSOLUTE AUTO 1.81 K/mm3 (1.96-9.15); NEUTROPHILS PERCENT AUTO 54 % (41-73); NRBC ABSOLUTE 0.00 K/mm3 (0.00-0.02); NRBC Auto 0.0 /100 WBC (0.0-0.2); Platelet Count 74 K/mm3 (150-400); RDW Coefficient Variation 16.3 % (11.7-14.2); RDW Standard Deviation 54.0 fL (35.1-46.3)
[2025-03-16 07:14] LABS: Alanine Aminotransfer (ALT/SGP 31.0 U/L (12-78); Albumin, Blood 2.6 g/dL (3.4-5.0); Albumin/Globulin Ratio 0.7 (0.8-1.8); Anion Gap 8.0 mmol/L (3-11); Aspartate Aminotrans (AST/SGOT 32.0 U/L (12-37); Bilirubin, Total 1.1 mg/dL (0.1-1.0); Blood Urea Nitrogen 20.0 mg/dL (8-24); CO2, Blood 19.0 mmol/L (21-32); Calcium, Blood 8.6 mg/dL (8.5-10.1); Chloride, Blood 114.0 mmol/L (98-108); Creatinine, Blood 0.99 mg/dL (0.60-1.20); Globulin, Blood 3.8 g/dL (2.2-4.0); Glucose, Blood 95.0 mg/dL (70-99); Magnesium, Blood 1.6 mg/dL (1.6-2.4); Potassium, Blood 4.4 mmol/L (3.5-5.5); Sodium, Blood 137.0 mmol/L (136-145); Total Protein, Blood 6.4 g/dL (6.4-8.2)
[2025-03-16 07:23] VITALS: BP 118/74
[2025-03-16 15:36] VITALS: BP 131/79
--- NOTE | 2025-03-16 16:33 | NUR ---
SHIFT SUMMARY PT IS A/OX4. INDEPENDENT IN THE ROOM. NO ACUTE CHANGES THROUGHOUT THIS SHIFT. MRI OF THE LIVER COMPLETED THIS MORNING. PT SLEEPING FOR MUCH OF THE DAY. AMMONIA LEVELS TRENDING DOWNWARD. AT BEDSIDE THIS AFTERNOON. PT IS PLEASANT AND COOPERATIVE WITH CARE AND CALLS APPROPRIATELY USING THE CALL LIGHT.
[2025-03-16 19:29] VITALS: BP 122/74
--- NOTE | 2025-03-17 05:11 | NUR ---
SHIFT SUMMARY: PT IS AOX4 AND IND IN ROOM. PT VOIDING THROUGH OUT NIGHT. MEDICATED PER EMAR. NO ACUTE CHANGES
[2025-03-17 05:19] LABS: BASOPHILS ABSOLUTE AUTO 0.02 K/mm3 (0.00-0.23); BASOPHILS PERCENT AUTO 1 % (0-2); EOSINOPHILS ABSOLUTE AUTO 0.18 K/mm3 (0.00-0.68); EOSINOPHILS PERCENT AUTO 5 % (0-6); Hematocrit 32.3 % (37.0-53.0); Hemoglobin 10.8 g/dL (13.5-17.5); IMMATURE GRAN ABSOLUTE AUTO 0.00 K/mm3 (0.00-0.10); IMMATURE GRAN PERCENT AUTO 0 % (0-1); LYMPHOCYTES ABSOLUTE AUTO 0.91 K/mm3 (0.84-5.20); LYMPHOCYTES PERCENT AUTO 28 % (21-46); MONOCYTES ABSOLUTE AUTO 0.49 K/mm3 (0.16-1.47); MONOCYTES PERCENT AUTO 15 % (4-13); Mean Corpuscular HGB Conc 33.4 g/dL (31.5-36.5); Mean Corpuscular Volume 91 fL (80-100); NEUTROPHILS ABSOLUTE AUTO 1.71 K/mm3 (1.96-9.15); NEUTROPHILS PERCENT AUTO 52 % (41-73); NRBC ABSOLUTE 0.00 K/mm3 (0.00-0.02); NRBC Auto 0.0 /100 WBC (0.0-0.2); Platelet Count 76 K/mm3 (150-400); RDW Coefficient Variation 16.5 % (11.7-14.2); RDW Standard Deviation 55.2 fL (35.1-46.3)
[2025-03-17 05:35] VITALS: BP 115/72
[2025-03-17 05:43] LABS: Alanine Aminotransfer (ALT/SGP 27.0 U/L (12-78); Albumin, Blood 2.6 g/dL (3.4-5.0); Albumin/Globulin Ratio 0.7 (0.8-1.8); Anion Gap 10.0 mmol/L (3-11); Aspartate Aminotrans (AST/SGOT 30.0 U/L (12-37); Bilirubin, Total 1.4 mg/dL (0.1-1.0); Blood Urea Nitrogen 20.0 mg/dL (8-24); CO2, Blood 19.0 mmol/L (21-32); Calcium, Blood 8.3 mg/dL (8.5-10.1); Chloride, Blood 113.0 mmol/L (98-108); Creatinine, Blood 0.98 mg/dL (0.60-1.20); Globulin, Blood 3.8 g/dL (2.2-4.0); Glucose, Blood 88.0 mg/dL (70-99); Magnesium, Blood 1.7 mg/dL (1.6-2.4); Potassium, Blood 4.4 mmol/L (3.5-5.5); Sodium, Blood 138.0 mmol/L (136-145); Total Protein, Blood 6.4 g/dL (6.4-8.2)
[2025-03-17 07:18] VITALS: BP 120/73
[2025-03-17 15:25] VITALS: BP 103/76
--- NOTE | 2025-03-17 15:58 | NUR ---
note PT ALERT, COOPERATIVE WITH CARE. LACTULOSE INCREASED PER HOME REGIME. MULTIPLE BMS. PT UP AD LINDY IN ROOM. PREFERS HIS WIFES FOOD. ENCOURAGED TO EAT/DRINK. VSS. RA. H/L. CARE ONGOING.
[2025-03-17 20:38] VITALS: BP 107/75
--- NOTE | 2025-03-18 04:28 | NUR ---
SHIFT SUMMARY PATIENT IS ALERT AND ORIENTED. PATIENT HAS HAD NO ACUTE EVENTS THIS SHIFT. PATIENT HAS BEEN IND OF ADLS THIS SHIFT. PATIENT HAS HAD NO COMPLAINTS OF PAIN, NAUSEA, SOB OR VOMITTING THIS SHIFT. BED IN LOCKED AND LOWEST POSITION. CALL LIGHT IN PLACE.
[2025-03-18 05:27] VITALS: BP 108/71
[2025-03-18 06:31] LABS: EOSINOPHILS ABSOLUTE AUTO 0.20 K/mm3 (0.00-0.68); LYMPHOCYTES ABSOLUTE AUTO 1.01 K/mm3 (0.84-5.20); LYMPHOCYTES PERCENT AUTO 30 % (21-46); MONOCYTES ABSOLUTE AUTO 0.51 K/mm3 (0.16-1.47); NEUTROPHILS ABSOLUTE AUTO 1.62 K/mm3 (1.96-9.15); NEUTROPHILS PERCENT AUTO 48 % (41-73)
[2025-03-18 06:33] LABS: BASOPHILS ABSOLUTE AUTO 0.02 K/mm3 (0.00-0.23); BASOPHILS PERCENT AUTO 1 % (0-2); EOSINOPHILS PERCENT AUTO 6 % (0-6); Hematocrit 31.3 % (37.0-53.0); Hemoglobin 10.5 g/dL (13.5-17.5); IMMATURE GRAN ABSOLUTE AUTO 0.01 K/mm3 (0.00-0.10); IMMATURE GRAN PERCENT AUTO 0 % (0-1); MONOCYTES PERCENT AUTO 15 % (4-13); Mean Corpuscular HGB Conc 33.5 g/dL (31.5-36.5); Mean Corpuscular Volume 91 fL (80-100); NRBC ABSOLUTE 0.00 K/mm3 (0.00-0.02); NRBC Auto 0.0 /100 WBC (0.0-0.2); Platelet Count 76 K/mm3 (150-400); RDW Coefficient Variation 16.8 % (11.7-14.2); RDW Standard Deviation 55.0 fL (35.1-46.3)
[2025-03-18 07:00] LABS: Alanine Aminotransfer (ALT/SGP 31.0 U/L (12-78); Albumin, Blood 2.5 g/dL (3.4-5.0); Albumin/Globulin Ratio 0.7 (0.8-1.8); Anion Gap 7.0 mmol/L (3-11); Aspartate Aminotrans (AST/SGOT 29.0 U/L (12-37); Bilirubin, Total 1.1 mg/dL (0.1-1.0); Blood Urea Nitrogen 18.0 mg/dL (8-24); CO2, Blood 21.0 mmol/L (21-32); Calcium, Blood 8.1 mg/dL (8.5-10.1); Chloride, Blood 113.0 mmol/L (98-108); Creatinine, Blood 1.02 mg/dL (0.60-1.20); Globulin, Blood 3.6 g/dL (2.2-4.0); Glucose, Blood 95.0 mg/dL (70-99); Magnesium, Blood 1.6 mg/dL (1.6-2.4); Potassium, Blood 3.8 mmol/L (3.5-5.5); Sodium, Blood 137.0 mmol/L (136-145); Total Protein, Blood 6.1 g/dL (6.4-8.2)
[2025-03-18 07:30] VITALS: BP 105/76
--- NOTE | 2025-03-18 15:43 | NUR ---
discahrge pt discharge home. Accompanied out by w/stephanie loja. care ongoing.
== END 2025-03-18 15:39 | disposition home or self-care (01) | DRG 442 ==
LOC: ER 09:18 → MEDS 09:19
PROVIDERS: Student in an Organized Health Care Education/Training Program; ADMIT Family Medicine
DX: K76.82 Hepatic encephalopathy (principal); E87.1 Hypo-osmolality and hyponatremia; K76.6 Portal hypertension; D69.6 Thrombocytopenia, unspecified; Z66 Do not resuscitate; R29.6 Repeated falls; I10 Essential (primary) hypertension; E11.42 Type 2 diabetes mellitus with diabetic polyneuropathy; K72.10 Chronic hepatic failure without coma; K21.9 Gastro-esophageal reflux disease without esophagitis; D63.8 Anemia in other chronic diseases classified elsewhere; M10.9 Gout, unspecified; K75.81 Nonalcoholic steatohepatitis (NASH); E78.5 Hyperlipidemia, unspecified; B00.1 Herpesviral vesicular dermatitis; Z87.891 Personal history of nicotine dependence; Z79.82 Long term (current) use of aspirin; Z98.890 Other specified postprocedural states; Z79.899 Other long term (current) drug therapy; Z88.8 Allergy status to other drugs, medicaments and biological substances
CPT/HCPCS: 36415; 70450; 74183; 80053; 80320; 82140; 83735; 84100; 85025; 85610; 85730; 90471; 90715; 99285-25; A9270; A9581; G0378; J7030

== ENCOUNTER 2025-06-04 17:08 | Emergency (ER) | payer MEDICARE, OTHER ==
[~2025-06-04] VITALS: Ht 175.3 cm; Wt 83.0 kg
[~2025-06-04 17:08] MED LIST changes: +ALDACTONE100 MG PO; +Aspir 8181 MG; +CARVEDILOL3.125 MG PO; +CELEXA10 MG PO; +FUROSEMIDE40 MG PO
[2025-06-04 18:00] LABS: BASOPHILS ABSOLUTE AUTO 0.03 K/mm3 (0.00-0.23); BASOPHILS PERCENT AUTO 1 % (0-2); EOSINOPHILS ABSOLUTE AUTO 0.17 K/mm3 (0.00-0.68); EOSINOPHILS PERCENT AUTO 4 % (0-6); Hematocrit 34.5 % (37.0-53.0); Hemoglobin 11.2 g/dL (13.5-17.5); IMMATURE GRAN ABSOLUTE AUTO 0.01 K/mm3 (0.00-0.10); IMMATURE GRAN PERCENT AUTO 0 % (0-1); LYMPHOCYTES ABSOLUTE AUTO 0.98 K/mm3 (0.84-5.20); LYMPHOCYTES PERCENT AUTO 20 % (21-46); MONOCYTES ABSOLUTE AUTO 0.70 K/mm3 (0.16-1.47); MONOCYTES PERCENT AUTO 14 % (4-13); Mean Corpuscular HGB Conc 32.5 g/dL (31.5-36.5); Mean Corpuscular Volume 85 fL (80-100); NEUTROPHILS ABSOLUTE AUTO 2.96 K/mm3 (1.96-9.15); NEUTROPHILS PERCENT AUTO 61 % (41-73); NRBC ABSOLUTE 0.00 K/mm3 (0.00-0.02); NRBC Auto 0.0 /100 WBC (0.0-0.2); Platelet Count 105 K/mm3 (150-400); RDW Coefficient Variation 16.5 % (11.7-14.2); RDW Standard Deviation 50.5 fL (35.1-46.3)
[2025-06-04 18:21] LABS: Prothrombin Time Results 13.5 Sec (9.7-11.5)
[2025-06-04 18:24] LABS: Alanine Aminotransfer (ALT/SGP 31.0 U/L (12-78); Albumin, Blood 3.3 g/dL (3.4-5.0); Albumin/Globulin Ratio 0.8 (0.8-1.8); Anion Gap 10.0 mmol/L (3-11); Aspartate Aminotrans (AST/SGOT 31.0 U/L (12-37); Bilirubin, Total 1.5 mg/dL (0.1-1.0); Blood Urea Nitrogen 28.0 mg/dL (8-24); CO2, Blood 21.0 mmol/L (21-32); Calcium, Blood 9.1 mg/dL (8.5-10.1); Chloride, Blood 108.0 mmol/L (98-108); Creatinine, Blood 1.13 mg/dL (0.60-1.20); Globulin, Blood 4.4 g/dL (2.2-4.0); Glucose, Blood 106.0 mg/dL (70-99); Magnesium, Blood 1.8 mg/dL (1.6-2.4); Phosphorus, Blood 3.4 mg/dL (2.5-4.9); Potassium, Blood 4.5 mmol/L (3.5-5.5); Sodium, Blood 134.0 mmol/L (136-145); Total Protein, Blood 7.7 g/dL (6.4-8.2)
[2025-06-04 18:51] LABS: Source, Urine Clean Catch
[2025-06-04 18:59] LABS: Bilirubin, Urine Neg (Neg); Color, Urine Yellow (P-Yellow); Glucose Qualitative, Urine Neg (Neg); Ketones, Urine Neg (Neg); Leukocyte Esterase, Urine Neg (Neg); Protein, Urine 1+ (Neg); Specific Gravity, Urine 1.020 (1.003-1.022); Urobilinogen, Urine NORM (Normal)
[2025-06-04 22:36] VITALS: BP 116/84
== END 2025-06-04 22:38 | disposition home or self-care (01) ==
LOC: ER 17:08
PROVIDERS: Student in an Organized Health Care Education/Training Program
DX: K76.82 Hepatic encephalopathy (principal); D64.9 Anemia, unspecified; D69.6 Thrombocytopenia, unspecified; R79.89 Other specified abnormal findings of blood chemistry; Z87.891 Personal history of nicotine dependence; I10 Essential (primary) hypertension; E11.9 Type 2 diabetes mellitus without complications; Z79.899 Other long term (current) drug therapy; Z88.8 Allergy status to other drugs, medicaments and biological substances
CPT/HCPCS: 70450; 80053; 82140; 83735; 84100; 85025; 85610; 85730; 99285-25; A9270